=== PATIENT | female | born 1975 | race Caucasian/White ===

== ENCOUNTER 2017-02-21 12:16 | Emergency (ER) | payer OTHER ==
[~2017-02-21] VITALS: Ht 152.4 cm; Wt 72.6 kg
[2017-02-21 13:00] VITALS: BP 130/82
[2017-02-21] MEDS ORDERED: IBUPROFEN 800 MG TAB PO ONE (14:15)
== END 2017-02-21 15:08 | disposition home or self-care (01) ==
LOC: ER 12:16
DX: S09.90XA Unspecified injury of head, initial encounter (principal); R11.0 Nausea; H92.02 Otalgia, left ear; W22.8XXA Striking against or struck by other objects, initial encounter; Y93.01 Activity, walking, marching and hiking; Y99.8 Other external cause status; Y92.218 Other school as the place of occurrence of the external cause
CPT/HCPCS: 70450

== ENCOUNTER 2024-11-13 06:25 | Emergency (ER) | payer BC, OTHER ==
[~2024-11-13] VITALS: Ht 152.4 cm; Wt 78.0 kg
--- NOTE | 2024-11-13 07:11 | ED.PDOC ---
GI ASSESSMENT HPI Comments 49 year old female presents to the ED with chief complaint of abdominal pain. Patient reports that she has been experiencing intermittent epigastric abdominal pain for the past 2 days, but she was woken up from sleeping at 2am due to sharp pain with associated nausea. Patient relays she has history of IBS and GERD. Patient denies any vomiting, diarrhea, dysuria, constipation, fever, or chills. Chief Complaint: Abdominal Pain Time Seen by MD: 07:10 Primary Care Provider: ANH Sky Notes: Nurses Notes, Medications, Allergies Allergies: Coded Allergies: NO KNOWN ALLERGIES (Unverified , 11/13/24) Home Meds Active Scripts Pantoprazole Sodium Sesquihydr (Protonix) 40 Mg Tab, 40 MG PO DAILY for 5 Days, #5 TAB Prov:GIOVANNI GIBBONS MD 11/13/24 Cephalexin (KEFLEX CAPSULE) 250 Mg Cp, 250 MG PO QID for 5 Days, #20 BOTTLE Prov:GIOVANNI GIBBONS MD 11/13/24 Information Source: Patient Mode of Arrival: Ambulatory Timing: Days Duration: Intermittent Prehospital treatment: None Quality: Sharp Vomitus: None Stool: Normal Severity: Moderate Recent: None Recent Hx of: None Pain Location: Epigastric Modifying Factors: Nothing Associated sign and symptoms: Nausea, Abdominal Pain Past Medical History PAST MEDICAL HISTORY: GERD Past Medical History (Other): IBS Surgical History (Other): Partial hysterectomy HUC OB History: No Pertinent HUC OB History Family History Family History: Reviewed,noncontributory to illness, Unknown Social History Smoker: Non-Smoker Alcohol: Denies ETOH Use Drugs: Denies Drug Use Lives In: Home Constitutional: denies: chills, diaphoresis, fatigue, fever, malaise, sweats, weakness, others EENTM: denies: blurred vision, double vision, ear bleeding, ear discharge, ear drainage, ear pain, ear ringing, eye pain, eye redness, hearing loss, mouth pain, mouth swelling, nasal discharge, nose bleeding, nose congestion, nose pain, photophobia, tearing, throat pain, throat swelling, voice changes, others Respiratory: denies: cough, hemoptysis, orthopnea, SOB at rest, shortness of breath, SOB with excertion, stridor, wheezing, others Cardiovascular: denies: chest pain, dizzy spells, diaphoresis, Dyspnea on exertion, edema, irregular heart beat, left arm pain, lightheadedness, palpitations, PND, syncope, others Gastrointestinal: reports: abdominal pain, nausea; denies: abdomen distended, blood streaked bowels, constipated, diarrhea, dysphagia, difficulty swallowing, hematemesis, melena, poor appetite, poor fluid intake, rectal bleeding, rectal pain, vomiting, others Genitourinary: denies: abnormal vagina bleeding, burning, dyspareunia, dysuria, flank pain, frequency, hematuria, incontinence, pain, , vagina discha rge, urgency, others Neurological: denies: dizziness, fainting, headache, left sided numbness, left sided weakness, numbness, paresthesia, pre-existing deficit, right sided numbness, right sided weakness, seizure, speech problems, tingling, tremors, weakness, others Musculoskeletal: denies: back pain, gout, joint pain, joint swelling, muscle pain, muscle stiffness, neck pain, others Integumetry: denies: bruises, change in color, change in hair/nails, dryness, laceration, lesions, lumps, rash, wounds, others Allergic/Immunocompromised: denies: Difficulty Healing, Frequent Infections, Hives, Itching, others Hematologic/Lymphatic: denies: anemia, blood clots, easy bleeding, easy bruising, swollen glands, others Endocrine: denies: excessive hunger, excessive sweating, excessive thirst, excessive urination, flushing, intolerance to cold, intolerance to heat, unexplained weight gain, unexplained weight loss, others Psychiatric: denies: anxiety, bipolar disorder, depression, hopeless, panic disorder, schizophrenia, sleepless, suicidal, others All Other Systems: Reviewed and Negative Physical Exam General Appearance: Moderate Distress, Normal HEENT: Normal ENT Inspection, PERRL/EOMI Neck: Full Range of Motion, Non-Tender, Normal, Normal Inspection Respiratory: Chest Non-Tender, Lungs Clear, No Accessory Muscle Use, No Respiratory Distress, Normal Breath Sounds Cardiovascular: No Edema, No JVD, No Murmur, No Gallop, Normal Peripheral Pulses, Regular Rate/Rhythm Breast Exam: Deferred Gastrointestinal: No Organomegaly, Non Tender, No Pulsatile Mass, Normal Bowel Sounds, Soft Genitalia: Deferred Pelvic: Deferred Rectal: Deferred Extremities: No calf tenderness, Normal capillary refill, Normal inspection, Normal range of motion, Non-tender, No pedal edema Musculoskeletal : Apperance: Normal Neurologic: Alert, head kiln operator II-XII nml as Tested, No Motor Deficits, Normal Affect, Normal Mood, No Sensory Deficits Cerebellar Function: Normal Reflexes: Normal Skin: Dry, Normal Color, Warm Peripheral Pulses: 3+ Radial (R), 3+ Radial (L) Lymphatic: No Adenopathy Was a procedure done? Was a procedure done?: No GI differential Dx Differential Diagnosis: Constipation, Diverticular disease, Esophagitis, Gastritis/PUD, Gastroenteritis X-Ray, Labs, Meds, VS Vital Signs Date Time Temp Pulse Resp B/P (MAP) Pulse Ox O2 Delivery O2 Flow Rate FiO2 11/13/24 10:42 98.1 75 16 127/76 (93) 97 98.1 11/13/24 07:57 84 16 97 Room Air 11/13/24 07:57 97.8 84 16 139/76 (97) 97 97.8 11/13/24 06:45 98.3 88 16 153/90 (111) 99 Lab Test 11/13/24 07:21 11/13/24 06:45 Range/Units White Blood Count 7.6 4.4-10.8 10^3/uL Red Blood Count 5.46 H 4.0-5.20 10^6/uL Hemoglobin 14.1 12.2-16.2 g/dL Hematocrit 43.8 36.0-46.0 % Mean Corpuscular Volume 80.1 80.0-100.0 fL Mean Corpuscular Hemoglobin 25.8 L 28.0-32.0 pg Mean Corpuscular Hemoglobin Concent 32.3 32.0-36.0 g/dL Red Cell Distribution Width 15.1 H 11.8-14.3 % Platelet Count 309 140-450 10^3/uL Mean Platelet Volume 8.1 6.9-10.8 fL Neutrophils (%) (Auto) 56.8 37.0-80.0 % Lymphocytes (%) (Auto) 34.0 10.0-50.0 % Monocytes (%) (Auto) 5.7 0.0-12.0 % Eosinophils (%) (Auto) 2.3 0.0-7.0 % Basophils (%) (Auto) 1.2 0.0-2.0 % Neutrophils # (Auto) 4.3 1.6-8.6 10 ^3/uL Lymphocytes # (Auto) 2.6 0.4-5.4 10 ^3/uL Monocytes # (Auto) 0.4 0-1.3 10 ^3/uL Eosinophils # (Auto) 0.2 0-0.8 10 ^3/uL Basophils # (Auto) 0.1 0-0.2 10 ^3/uL Nucleated Red Blood Cells 0.0 % Sodium Level 143 136-145 mmol/L Potassium Level 4.2 3.5-5.1 mmol/L Chloride Level 108 H 98-107 mmol/L Carbon Dioxide Level 28 20-31 mmol/L Anion Gap 7 5-15 Blood Urea Nitrogen 8 L 9-23 mg/dL Creatinine 0.80 0.550-1.02 mg/dL Glomerular Filtration Rate Calc 90 >90 mL/min BUN/Creatinine Ratio 10.0 10.0-20.0 Serum Glucose 100 74-106 mg/dL Calcium Level 9.8 8.7-10.4 mg/dL Lipase 46 12-53 U/L Urine Color Light-yellow Yellow Urine Clarity Clear Clear Urine pH 7.0 5.0-9.0 Urine Specific [place] 1.019 1.001-1.035 Urine Protein Negative Negative Urine Ketones Negative Negative Urine Blood 1+ H Negative /uL Urine Nitrite Negative Negative Urine Bilirubin Negative Negative Urine Urobilinogen Normal Negative mg/dL Urine Leukocyte Esterase Trace Negative /uL Urine RBC 6 0 - 4 /hpf Urine WBC 1 0 - 5 /hpf Urine Squamous Epithelial Cells Few <5 /hpf Urine Bacteria None seen None Seen /hpf Urine Glucose Normal Normal mg/dL Patient alert. Complaining of abdominal pain. Vitals stable. Answering all questions. Abdomen is soft nontender. Reviewed her history. Continue cardiac monitoring. CT scan of the abdomen reviewed does show nonobstructing kidney stone. No acute process. Urinalysis shows UTI. Was given prescription of Keflex antibiotic. Explained to the patient. Was told to follow up with her primary care physician. Was told to come back if there is any problem. CT Abd/Pel: FINDINGS: LUNG BASE: Normal. LIVER: Normal. GALLBLADDER AND BILIARY TREE: Cholecystectomy clips. No intra- or extrahepatic biliary ductal dilation. PANCREAS: Normal. SPLEEN: Normal. BOWEL: Normal. Normal appendix. ADRENALS: Normal. KIDNEYS AND URETER: Nonobstructive right kidney stone, no hydronephrosis. BLADDER: Normal. REPRODUCTIVE ORGANS: Normal. LYMPH NODES:No lymphadenopathy. PERITONEUM: No ascites or free air. No other fluid collection. VESSELS: Scattered atherosclerotic calcifications are noted. RETROPERITONEUM: Normal. ABDOMINAL WALL: Small fat containing umbilical hernia. BONES: Scattered osseous degenerative changes are noted. IMPRESSION: No acute intraabdominal abnormality. Nonobstructive right kidney stone, no hydronephrosis. Images Reviewed?: Images reviewed and evaluated by me Time of 1ST Reevaluation: 08:10 Reevaluation 1ST: Improved Patient Education/Counseling: Diagnosis, Treatment Family Education/Counseling: No Family Present Additional Information The following tests were ordered, and results were reviewed by me: BMP, UA, CBC, Lipase I discussed treatment and results with medical personnel. Departure 1 Departure Time of Disposition: 07:35 Impression: Primary Impression: Gastritis Qualified Codes: K29.00 - Acute gastritis without bleeding Additional Impressions: Urinary tract infection Qualified Codes: N30.00 - Acute cystitis without hematuria Kidney stone Disposition: HOME / SELF CARE / HOMELESS Condition: Good e-Prescriptions Pantoprazole Sodium Sesquihydr (Protonix) 40 Mg Tab 40 MG PO DAILY for 5 Days, #5 TAB Prov: GIOVANNI GIBBONS MD 11/13/24 Cephalexin (KEFLEX CAPSULE) 250 Mg Cp 250 MG PO QID for 5 Days, #20 BOTTLE Prov: GIOVANNI GIBBONS MD 11/13/24 Discharged With: Self Critical Care Note Critical Care Time?: No Stability Stability form required: No Heart Score Heart Score: Heart Score Response (Comments) Value History N/A 0 EKG N/A 0 Age N/A 0 Risk Factors N/A 0 Troponin N/A 0 Total 0 I personally scribed for GIOVANNI GIBBONS MD ([email or web address]) on 11/13/24 at 07:11. Electronically submitted by Woo Maddox ([email or web address]). I personally scribed for GIOVANNI GIBBONS MD ([email or web address]) on 11/13/24 at 07:19. Electronically submitted by Woo Maddox ([email or web address]). I personally scribed for GIOVANNI GIBBONS MD ([email or web address]) on 11/13/24 at 10:38. Electronically submitted by Jeanine Sinha ([email or web address]). I personally scribed for GIOVANNI GIBBONS MD ([email or web address]) on 11/13/24 at 10:58. Electronically submitted by Woo Maddox ([email or web address]). GIOVANNI GIBBONS MD Nov 13, 2024 07:11
[2024-11-13 07:38] LABS: Basophils # (auto) 0.1 10 ^3/uL (0-0.2); Basophils % (auto) 1.2 % (0.0-2.0); Eosinophils # (auto) 0.2 10 ^3/uL (0-0.8); Eosinophils % (auto) 2.3 % (0.0-7.0); Hematocrit 43.8 % (36.0-46.0); Hemoglobin 14.1 g/dL (12.2-16.2); Lymphocytes # (auto) 2.6 10 ^3/uL (0.4-5.4); Mean Corpuscular Hemoglobin 25.8 pg (28.0-32.0); Mean Corpuscular Hgb Conc. 32.3 g/dL (32.0-36.0); Mean Corpuscular Volume 80.1 fL (80.0-100.0); Monocytes # (auto) 0.4 10 ^3/uL (0-1.3); Monocytes % (auto) 5.7 % (0.0-12.0); Neutrophils # (auto) 4.3 10 ^3/uL (1.6-8.6); Neutrophils % (auto) 56.8 % (37.0-80.0); Platelet Count (auto) 309 10^3/uL (140-450); Red Blood Cells 5.46 10^6/uL (4.0-5.20); Red Cell Distribution Width 15.1 % (11.8-14.3); White Blood Cell 7.6 10^3/uL (4.4-10.8)
[2024-11-13 07:45] LABS: Potassium 4.2 mmol/L (3.5-5.1); Sodium 143 mmol/L (136-145)
[2024-11-13 07:46] LABS: Anion Gap 7 (5-15); Carbon Dioxide 28 mmol/L (20-31)
[2024-11-13 07:47] LABS: Calcium 9.8 mg/dL (8.7-10.4)
[2024-11-13 07:51] LABS: Glucose 100 mg/dL (74-106)
[2024-11-13 07:52] LABS: Lipase 46 U/L (12-53)
[2024-11-13 08:05] LABS: Blood Urea Nitrogen 8 mg/dL (9-23); Chloride 108 mmol/L (98-107)
[2024-11-13 08:17] LABS: Urine Bacteria None Seen /hpf (None Seen)
[2024-11-13 08:39] LABS: Urine Blood 1+ /uL (Negative); Urine Clarity Clear (Clear); Urine Color Light-Yellow (Yellow); Urine Protein, UAD Negative (Negative); Urine Specific Gravity 1.019 (1.001-1.035); Urine Urobilinogen Normal (Negative); Urine WBC 1 /hpf (0 - 5)
[2024-11-13] MEDS ORDERED: PANT40TA2 PO (09:52)
[2024-11-13] MEDS ORDERED: CEPH250C PO (09:52)
--- NOTE | 2024-11-13 10:46 | DVH ---
CT CT AB PEL WO CON-NO ORAL OR IV INDICATION: stone EXAM DATE: 11/13/2024 10:00 AM COMPARISON: None RADIATION DOSE: CTDIvol: 13.38 mGy, DLP: 652.52 mGy*cm PROCEDURE: Helical CT images were obtained of the abdomen and pelvis without IV contrast Sagittal an d coronal reconstructions are provided. ORAL CONTRAST: None. ADDITIONAL IMAGES / REFORMATS: None All CT scans at this medical facility are performed using dose modulation techniques as appropriate t o a performed exam including the following: Automated exposure control was utilized; adjustment of th e MA and/or KV according to patient size; and use of iterative reconstruction technique. FINDINGS: LUNG BASE: Normal. LIVER: Normal. GALLBLADDER AND BILIARY TREE: Cholecystectomy clips. No intra- or extrahepatic biliary ductal dilatio n. PANCREAS: Normal. SPLEEN: Normal. BOWEL: Normal. Normal appendix. ADRENALS: Normal. KIDNEYS AND URETER: Nonobstructive right kidney stone, no hydronephrosis. BLADDER: Normal. REPRODUCTIVE ORGANS: Normal. LYMPH NODES:No lymphadenopathy. PERITONEUM: No ascites or free air. No other fluid collection. VESSELS: Scattered atherosclerotic calcifications are noted. RETROPERITONEUM: Normal. ABDOMINAL WALL: Small fat containing umbilical hernia. BONES: Scattered osseous degenerative changes are noted. IMPRESSION: No acute intraabdominal abnormality. Nonobstructive right kidney stone, no hydronephrosis.
[2024-11-13 11:39] VITALS: BP 128/78; PULSE 78; RESP 16; TEMP 98.2; O2SAT 98
== END 2024-11-13 11:41 | disposition home or self-care (01) ==
LOC: ER 06:25
DX: K29.70 Gastritis, unspecified, without bleeding (principal); N30.00 Acute cystitis without hematuria; N20.0 Calculus of kidney; K21.9 Gastro-esophageal reflux disease without esophagitis; Z98.890 Other specified postprocedural states
CPT/HCPCS: 36415; 74176; 80048; 81001; 83690; 85025

== ENCOUNTER 2025-01-12 15:24 | Inpatient (IN) | payer BC, OTHER ==
[~2025-01-12] VITALS: Ht 154.9 cm; Wt 76.9 kg
[~2025-01-12 15:24] MED LIST: CEPH250C PO; PANT40TA2 PO
--- NOTE | 2025-01-12 15:52 | DVH ---
CHEST RADIOGRAPH Indication: chest pain Technique: Single frontal view of the chest was obtained COMPARISON: None FINDINGS: Lines and Tubes: None Lungs: Clear Pleura: No effusion. No pneumothorax. Cardiomediastinal contours: Unremarkable Bones: Unremarkable IMPRESSION: No acute disease.
[2025-01-12 15:55] LABS: Basophils # (auto) 0.1 10 ^3/uL (0-0.2); Hemoglobin 14.1 g/dL (12.2-16.2); Lymphocytes # (auto) 2.2 10 ^3/uL (0.4-5.4); Monocytes # (auto) 0.6 10 ^3/uL (0-1.3); Red Blood Cells 5.49 10^6/uL (4.0-5.20); Red Cell Distribution Width 15.6 % (11.8-14.3)
[2025-01-12 15:57] LABS: Basophils % (auto) 0.9 % (0.0-2.0); Eosinophils # (auto) 0.1 10 ^3/uL (0-0.8); Eosinophils % (auto) 1.7 % (0.0-7.0); Hematocrit 43.7 % (36.0-46.0); Lymphocytes % (auto) 27.6 % (10.0-50.0); Mean Corpuscular Hemoglobin 25.7 pg (28.0-32.0); Mean Corpuscular Hgb Conc. 32.3 g/dL (32.0-36.0); Mean Corpuscular Volume 79.6 fL (80.0-100.0); Monocytes % (auto) 7.5 % (0.0-12.0); Neutrophils % (auto) 62.3 % (37.0-80.0); Platelet Count (auto) 334 10^3/uL (140-450); White Blood Cell 8.1 10^3/uL (4.4-10.8)
[2025-01-12 16:07] LABS: Calcium 9.7 mg/dL (8.7-10.4); Carbon Dioxide 26 mmol/L (20-31)
[2025-01-12 16:12] LABS: BUN/Creatinine Ratio 9.3 (10.0-20.0)
--- NOTE | 2025-01-12 16:13 | ED.PDOC ---
HPI Comments 49y F who presents to the ED for chief complaint of chest pain. Pt states she has been having chest pain for the past 5 days. Pt states the pain is located by the L side of her chest, intermittent, radiaing to the L arm, sharp in nature, rating the pain 9/10, with noted exacerbation of pain while ambulating and no relieving factors. Pt has associated shortness of breath, but otherwise denies any other symptoms. Pt has noted BP of 158/89 and heart rate of 102 with all other vitals in normal range. Pt otherwise denies any other symptoms at this time. Chief Complaint: Chest Pain Time Seen by MD: 16:11 Primary Care Provider: ANH Reviewed Notes: Nurses Notes, Medications, Allergies (No allergies to medications) Allergies: Coded Allergies: NO KNOWN ALLERGIES (Unverified , 11/13/24) Home Meds Active Scripts Pantoprazole Sodium Sesquihydr (Protonix) 40 Mg Tab, 40 MG PO DAILY for 5 Days, #5 TAB Prov:GIOVANNI GIBBONS MD 11/13/24 Cephalexin (KEFLEX CAPSULE) 250 Mg Cp, 250 MG PO QID for 5 Days, #20 BOTTLE Prov:GIOVANNI GIBBONS MD 11/13/24 Information Source: Patient Mode of Arrival: Ambulatory Brought in by: self Severity: Moderate Timing: Days Duration: Since onset Prehospital treatment: None Location: Chest (L) Radiation: Shoulder (L) Quality: Pressure Onset: At Rest, With Light Exertion Cardiac Risk Factors: Hyperlipidemia PE Risk Factors: None History of: Similar pain in past Modifying Factors: Exertion Associated Signs and Symptoms: SOB Past Medical History PAST MEDICAL HISTORY: GERD, High Lipids Surgical History: Cholecystectomy, Hysterectomy QUALITY ASSURANCE ANALYST History: No Pertinent QUALITY ASSURANCE ANALYST History Family History Family History: Reviewed,noncontributory to illness, Unknown Social History Smoker: Non-Smoker Alcohol: Denies ETOH Use Drugs: Denies Drug Use Lives In: Home Constitutional: denies: chills, diaphoresis, fatigue, fever, malaise, sweats, weakness, others EENTM: denies: blurred vision, double vision, ear bleeding, ear discharge, ear drainage, ear pain, ear ringing, eye pain, eye redness, hearing loss, mouth pain, mouth swelling, nasal discharge, nose bleeding, nose congestion, nose pain, photophobia, tearing, throat pain, throat swelling, voice changes, others Respiratory: reports: shortness of breath; denies: cough, hemoptysis, orthopnea, SOB at rest, SOB with excertion, stridor, wheezing, others Cardiovascular: reports: chest pain; denies: dizzy spells, diaphoresis, Dyspnea on exertion, edema, irregular heart beat, left arm pain, lightheadedness, palpitations, PND, syncope, others Gastrointestinal: denies: abdomen distended, abdominal pain, blood streaked bowels, constipated, diarrhea, dysphagia, difficulty swallowing, hematemesis, melena, nausea, poor appetite, poor fluid intake, rectal bleeding, rectal pain, vomiting, others Genitourinary: denies: abnormal vagina bleeding, burning, dyspareunia, dysuria, flank pain, frequency, hematuria, incontinence, pain, , vagina disc harge, urgency, others Neurological: denies: dizziness, fainting, headache, left sided numbness, left sided weakness, numbness, paresthesia, pre-existing deficit, right sided numbness, right sided weakness, seizure, speech problems, tingling, tremors, weakness, others Musculoskeletal: denies: back pain, gout, joint pain, joint swelling, muscle pain, muscle stiffness, neck pain, others Integumetry: denies: bruises, change in color, change in hair/nails, dryness, laceration, lesions, lumps, rash, wounds, others Allergic/Immunocompromised: denies: Difficulty Healing, Frequent Infections, Hives, Itching, others Hematologic/Lymphatic: denies: anemia, blood clots, easy bleeding, easy bruising, swollen glands, others Endocrine: denies: excessive hunger, excessive sweating, excessive thirst, excessive urination, flushing, intolerance to cold, intolerance to heat, unexplained weight gain, unexplained weight loss, others Psychiatric: denies: anxiety, bipolar disorder, depression, hopeless, panic disorder, schizophrenia, sleepless, suicidal, others All Other Systems: Reviewed and Negative Physical Exam General Appearance: Moderate Distress HEENT: Normal ENT Inspection, Pharynx Normal, TMs Normal Neck: Full Range of Motion, Non-Tender, Normal, Normal Inspection Respiratory: Chest Non-Tender, Lungs Clear, No Accessory Muscle Use, No Respiratory Distress, Normal Breath Sounds Cardiovascular: No Edema, No JVD, No Murmur, No Gallop, Normal Peripheral Pulses, Regular Rate/Rhythm Breast Exam: Deferred Gastrointestinal: No Organomegaly, Non Tender, No Pulsatile Mass, Normal Bowel Sounds, Soft Genitalia: Deferred Pelvic: Deferred Rectal: Deferred Extremities: No calf tenderness, Normal capillary refill, Normal inspection, Normal range of motion, Non-tender, No pedal edema Musculoskeletal : Apperance: Normal Neurologic: Alert, digital media buyer II-XII nml as Tested, No Motor Deficits, Normal Affect, Normal Mood, No Sensory Deficits Cerebellar Function: Normal Reflexes: Normal Skin: Dry, Normal Color, Warm Lymphatic: No Adenopathy EKG EKG : Pulse Rate (adult): 97 [place]: LAD Cardiac Rhythm: NSR Block: None Hypertrophy: None ST: Normal Was a procedure done? Was a procedure done?: No CP Differential Dx Differential Diagnosis: Angina, Anxiety / Panic Attack, PVC's, Sinus Tachycardia Differential Diagnosis: HTN Essential, HTN Accelerated Differential Diagnosis: Chest Wall Pain X-Ray, Labs, Meds, VS Vital Signs Date Time Temp Pulse Resp B/P (MAP) Pulse Ox O2 Delivery O2 Flow Rate FiO2 01/12/25 16:16 82 01/12/25 16:13 97 01/12/25 15:39 98.9 101 16 158/89 (112) 98 01/12/25 15:30 97 Lab Test 01/12/25 16:25 01/12/25 16:00 01/12/25 15:30 Range/Units Troponin I High Sensitivity < 3 L < 3 L </=34 ng/L Urine Color Colorless Yellow Urine Clarity Clear Clear Urine pH 6.0 5.0-9.0 Urine Specific [place] 1.006 1.001-1.035 Urine Protein Negative Negative Urine Ketones Negative Negative Urine Blood Trace H Negative /uL Urine Nitrite Negative Negative Urine Bilirubin Negative Negative Urine Urobilinogen Normal Negative mg/dL Urine Leukocyte Esterase Negative Negative /uL Urine RBC 4 0 - 4 /hpf Urine Microscopic WBC < 1 0-5 /HPF Urine Squamous Epithelial Cells Few <5 /hpf Urine Bacteria Few H None Seen /hpf Urine Glucose Normal Normal mg/dL White Blood Count 8.1 4.4-10.8 10^3/uL Red Blood Count 5.49 H 4.0-5.20 10^6/uL Hemoglobin 14.1 12.2-16.2 g/dL Hematocrit 43.7 36.0-46.0 % Mean Corpuscular Volume 79.6 L 80.0-100.0 fL Mean Corpuscular Hemoglobin 25.7 L 28.0-32.0 pg Mean Corpuscular Hemoglobin Concent 32.3 32.0-36.0 g/dL Red Cell Distribution Width 15.6 H 11.8-14.3 % Platelet Count 334 140-450 10^3/uL Mean Platelet Volume 8.2 6.9-10.8 fL Neutrophils (%) (Auto) 62.3 37.0-80.0 % Lymphocytes (%) (Auto) 27.6 10.0-50.0 % Monocytes (%) (Auto) 7.5 0.0-12.0 % Eosinophils (%) (Auto) 1.7 0.0-7.0 % Basophils (%) (Auto) 0.9 0.0-2.0 % Neutrophils # (Auto) 5.0 1.6-8.6 10 ^3/uL Lymphocytes # (Auto) 2.2 0.4-5.4 10 ^3/uL Monocytes # (Auto) 0.6 0-1.3 10 ^3/uL Eosinophils # (Auto) 0.1 0-0.8 10 ^3/uL Basophils # (Auto) 0.1 0-0.2 10 ^3/uL Nucleated Red Blood Cells 0.0 % D-Dimer, Quantitative 0.29 0.0-0.49 mg/L FEU Sodium Level 140 136-145 mmol/L Potassium Level 4.3 3.5-5.1 mmol/L Chloride Level 106 98-107 mmol/L Carbon Dioxide Level 26 20-31 mmol/L Anion Gap 8 5-15 Blood Urea Nitrogen 8 L 9-23 mg/dL Creatinine 0.86 0.550-1.02 mg/dL Glomerular Filtration Rate Calc 82 >90 mL/min BUN/Creatinine Ratio 9.3 L 10.0-20.0 Serum Glucose 106 74-106 mg/dL Calcium Level 9.7 8.7-10.4 mg/dL Current Medications Medications (Trade) Dose Ordered Sig/Anayeli Route Start Time Stop Time Status Last Admin Aspirin 162 mg ONCE ONCE PO 01/12/25 16:30 01/12/25 16:31 DC 01/12/25 16:46 CHEST RADIOGRAPH IMPRESSION: No acute disease. The patient's CBC is within normal limits The chemistry is within normal limits The 1st troponin level came back as negative The patient was still having persistent chest pain The patient was being admitted to the hospitalist The patient was given aspirin here in the emergency department's We discussed the findings with the patient and the patient will need to have a Cardiology consult. The 2nd troponin level came back negative The D-dimer is within normal limits at this time The patient is being admitted Images Reviewed?: Images reviewed and evaluated by me Time of 1ST Reevaluation: 16:40 Reevaluation 1ST: Unchanged Patient Education/Counseling: Diagnosis, Treatment Family Education/Counseling: No Family Present Additional Information - I reviewed the following notes from patient's past medical encounters: - The following tests were ordered, and results were reviewed by me: (Labs, X- Ray, EKG): cbc, chest x-ray, ua, trop x3, ekgx3, d-dimer, bmp, - Additional information was gathered from interviewing the following independent Historian: (Family, Other Providers, EMT): self - I reviewed and agreed with the following test results read by other provider: (X-ray, CT, US): radiologist - I discussed treatments and results with medical personnel and: (consultants, family): none Departure 1 Departure Time of Disposition: 17:30 Impression: Primary Impression: Acute coronary syndrome Disposition: 09 ADMITTED INPATIENT Admit to: Tele Condition: Fair Critical Care Note Critical Care Time?: Yes (45 min-critical care time only) Stability Stability form required: Yes Unstable for transfer: Telemetry monitoring (Telemetry monitoring required), ED Physician Assesment (Clinical assesment) Heart Score Heart Score: Heart Score Response (Comments) Value History Slightly Suspicious 0 EKG Normal 0 Age 45-64 1 Risk Factors 1 or 2 risk factors 1 Troponin Normal limit 0 Total 2 I personally scribed for ELISHA LANTIGUA MD ([email or web address]) on 01/12/25 at 16:13. Electronically submitted by Chai Del Angel ([email or web address]). I personally scribed for ELISHA LANTIGUA MD ([email or web address]) on 01/12/25 at 16:14. Electronically submitted by Chai Del Angel ([email or web address]). ELISHA LANTIGUA MD Jan 12, 2025 16:13
[2025-01-12 16:14] LABS: Anion Gap 8 (5-15); Chloride 106 mmol/L (98-107); Potassium 4.3 mmol/L (3.5-5.1); Sodium 140 mmol/L (136-145)
[2025-01-12 16:15] LABS: Blood Urea Nitrogen 8 mg/dL (9-23); Glucose 106 mg/dL (74-106)
[2025-01-12] MEDS: ASPirin 81 mg TAB PO ONE (16:46)
[2025-01-12 16:58] LABS: Urine Bacteria FEW /hpf (None Seen); Urine Blood TRACE /uL (Negative); Urine Clarity Clear (Clear); Urine Color Colorless (Yellow); Urine Protein, UAD Negative (Negative); Urine Specific Gravity 1.006 (1.001-1.035); Urine Squamous Epithelial Cell FEW /hpf (<5); Urine Urobilinogen Normal (Negative); Urine WBC < 1 /HPF (0-5)
--- NOTE | 2025-01-12 19:08 | ECG ---
[facility] Test Date: 2025-01-12 Test Time: 16:15:40 Pat Name: JULIÁN STOCK Department: ED Room: 0286 Gender: F General Practitioner: JACQUELNIE : 1975 Requested By: ELISHA LANTIGUA Order Number: [id number] Reading MD: Renny Perez Measurements Intervals [place] Rate: 82 P: 50 ID: [id number] QRS: -35 QRSD: 92 T: 19 QT: 361 QTc: 422 Interpretive Statements Sinus rhythm Left axis deviation Low voltage, precordial leads Borderline T abnormalities, anterior leads Electronically Signed On 01-13-2025 22:19:54 PST by Renny Perez Please click the below link to view image of tracing.
[2025-01-12 21:29] VITALS: PULSE 88; RESP 18; O2SAT 98
[2025-01-12] MEDS: PANTOPRAZOLE 40 MG TAB PO SCH (21:36)
[2025-01-12] MEDS: KETOROLAC TROMETH 30 MG/ML 1ML VIAL IV SCH (21:36)
[2025-01-12] MEDS: LOSARTAN POTASSIUM 50 MG TAB PO SCH (21:36)
[2025-01-13] VITALS (10 sets, daily range): BP systolic 113–143; BP diastolic 69–82; PULSE 66–143; RESP 16–82; TEMP 97.6–98.4; O2SAT 95–98
[2025-01-13] MEDS: ACETAMINOPHEN 325 MG TAB PO SCH (00:10)
[2025-01-13] MEDS ORDERED: ATOR10TA52 PO (02:08)
[2025-01-13 02:34] LABS: Urine Bacteria None Seen /hpf (None Seen)
[2025-01-13 03:14] LABS: Amphetamine Screen, Urine Neg (NEGATIVE); Barbiturate Scree,Urine Neg (NEGATIVE); Benzodiazephine Screen, Urine Neg (NEGATIVE); Cocaine Screen, Urine Neg (NEGATIVE); Opiate Scree,Urine Neg (NEGATIVE); Phencyclidine Screen, Urine Neg (NEGATIVE)
[2025-01-13 03:16] LABS: Cannabinoid Screen, Urine Neg (NEGATIVE)
--- NOTE | 2025-01-13 03:16 | DVHHPRES ---
History of Present Illness Resident Creating Document: GIOVANI GOSS Reason for Visit: chest pain History of Present Illness The patient is a 49-year-old female with PMHx of HLD and GERD presenting with 4 days of left-sided chest pain. She describes the pain as intermittent, sharp in nature, sometimes radiating to the left arm, She notes tenderness on palpation around the chest wall, and the pain also increases with arm movement. The patient states the discomfort worsens when she takes a deep breath, suggesting a pleuritic component. She denies classical angina symptoms (e.g., no chest pressure or pain on exertion), and she reports no aggravation of pain when walking. She endorses mild shortness of breath, which she attributes to the pain itself. She denies chills, diaphoresis, or other systemic symptoms. In the ED, her initial blood pressure was 158/89 mmHg with a heart rate of 102 bpm; other vital signs were within normal limits. Laboratory workup, including CBC, chemistry panel, and multiple troponin measurements, was normal. A D-dimer test was also within normal limits. The EKG showed normal sinus rhythm no evidence of blocks or hypertrophy, and normal ST segments. A chest radiograph revealed no acute disease. Home meds: Atorvastatin pantoprazole Review of Systems Constitutional: No: Fever, Chills, Sweats, Weakness, Malaise, Other Eyes: No: Pain, Vision change, Conjunctivae inflammation, Eyelid inflammation, Other, Redness ENT: No: Ear pain, Ear discharge, Nose pain, Nose discharge, Nose congestion, Mouth pain, Mouth swelling, Throat pain, Throat swelling, Other Respiratory: No: Cough, Dry, Shortness of breath, SOB with excertion, Wheezing, Hemoptysis, Pleuritic Pain, Sputum, Wheezing, Other Cardiovascular: Chest Pain; No: Palpitations, Orthopnea, Paroxysmal Noc. Dyspnea, Edema, Lt Headedness, Other Gastrointestinal: No: Nausea, Vomiting, Abdominal Pain, Diarrhea, Constipation, Melena, Hematochezia, Other Genitourinary: No Dysuria, No Frequency, No Incontinence, No Hematuria, No Retention, No Other Musculoskeletal: arm pain; No: other, neck pain, shoulder pain, back pain, hand pain, leg pain, foot pain Skin: No: Rash, Lesions, Jaundice, Bruising, Other Neurological: No: Weakness, Numbness, Incoordination, Change in speech, Confusion, Seizures, Other Allergies: Coded Allergies: Penicillins (Verified Allergy, Unknown, 01/12/25) Medications Current Medications Medications Dose Ordered Sig/Anayeli Route Start Time Stop Time Status Last Admin Dose Admin Pantoprazole Sodium 40 mg DAILY PO 01/12/25 21:00 01/12/25 21:36 40 MG Ketorolac Tromethamine 15 mg Q6HPRN IV 01/13/25 00:00 01/18/25 00:00 01/13/25 00:09 15 MG Acetaminophen 325 mg Q6HR PO 01/13/25 00:00 01/13/25 00:10 325 MG Atorvastatin Calcium 40 mg DAILY PO 01/13/25 10:00 Losartan Potassium 50 mg DAILY PO 01/12/25 21:00 01/12/25 21:36 50 MG Exam Vital Signs Vital Signs Date Time Temp Pulse Resp B/P (MAP) Pulse Ox O2 Delivery O2 Flow Rate FiO2 01/13/25 01:58 98.1 143 82 143/82 (102) 96 98.1 01/12/25 21:29 Room Air* 0 21 General Appearance: Alert, Oriented X3, Cooperative HEENT: Atraumatic, PERRLA Respiratory: Clear to auscultation, Normal air movement Cardiovascular: Regular rate, Normal S1, Normal S2 Abdominal: Normal bowel sounds, Soft Extremities: No clubbing, No cyanosis Skin: No rashes, No breakdown Neuro: Normal gait, Normal speech Labs/Xrays Labs Test 01/13/25 02:00 01/12/25 16:25 01/12/25 15:30 Range/Units Troponin I High Sensitivity < 3 L </=34 ng/L White Blood Count 8.1 4.4-10.8 10^3/uL Red Blood Count 5.49 H 4.0-5.20 10^6/uL Hemoglobin 14.1 12.2-16.2 g/dL Hematocrit 43.7 36.0-46.0 % Mean Corpuscular Volume 79.6 L 80.0-100.0 fL Mean Corpuscular Hemoglobin 25.7 L 28.0-32.0 pg Mean Corpuscular Hemoglobin Concent 32.3 32.0-36.0 g/dL Red Cell Distribution Width 15.6 H 11.8-14.3 % Platelet Count 334 140-450 10^3/uL Mean Platelet Volume 8.2 6.9-10.8 fL Neutrophils (%) (Auto) 62.3 37.0-80.0 % Lymphocytes (%) (Auto) 27.6 10.0-50.0 % Monocytes (%) (Auto) 7.5 0.0-12.0 % Eosinophils (%) (Auto) 1.7 0.0-7.0 % Basophils (%) (Auto) 0.9 0.0-2.0 % Neutrophils # (Auto) 5.0 1.6-8.6 10 ^3/uL Lymphocytes # (Auto) 2.2 0.4-5.4 10 ^3/uL Monocytes # (Auto) 0.6 0-1.3 10 ^3/uL Eosinophils # (Auto) 0.1 0-0.8 10 ^3/uL Basophils # (Auto) 0.1 0-0.2 10 ^3/uL Nucleated Red Blood Cells 0.0 % D-Dimer, Quantitative 0.29 0.0-0.49 mg/L FEU Sodium Level 140 136-145 mmol/L Potassium Level 4.3 3.5-5.1 mmol/L Chloride Level 106 98-107 mmol/L Carbon Dioxide Level 26 20-31 mmol/L Anion Gap 8 5-15 Blood Urea Nitrogen 8 L 9-23 mg/dL Creatinine 0.86 0.550-1.02 mg/dL Glomerular Filtration Rate Calc 82 >90 mL/min BUN/Creatinine Ratio 9.3 L 10.0-20.0 Serum Glucose 106 74-106 mg/dL Calcium Level 9.7 8.7-10.4 mg/dL Assessment/Plan Assessment/Plan #Hypertensive crisis #Chest pain #Rule out ACS #Rule out PE #H/o HLD #H/o GERD Admit Med surg Tylenol. Ketorolac Start losartan Aspirin 1 dose given Continue atorvastatin and pantoprazole Discussed with Dr. Drew Time spent on care 23 min Full code Plan discussed with: Patient, Other (rn) My Orders Orders - GIOVANI GOSS RESIDENT Procedure Category Date Status Time Admit ADMIT 01/12/25 Transmitted 20:50 Pantoprazole Tablet PHA 01/12/25 In Process (Protonix Tablet) 21:00 Ketorolac Injection PHA 01/13/25 In Process (Toradol Injection) 00:00 Acetaminophen Tablet PHA 01/13/25 In Process (Tylenol Tablet) 00:00 Atorvastatin (Lipitor) PHA 01/13/25 In Process 10:00 Losartan Tablet PHA 01/12/25 In Process (Cozaar Tablet) 21:00 Complete Blood Count LAB 01/13/25 Logged 04:00 Comprehensive LAB 01/13/25 Logged Metabolic Panel 04:00 Drug Screen LAB 01/13/25 In Process 04:00 Hemoglobin A1c LAB 01/13/25 Logged 04:00 Lipid Panel LAB 01/13/25 Logged 04:00 PTPTT LAB 01/13/25 Logged 04:00 Thyroid Stimulating LAB 01/13/25 Logged Hormone 04:00 Urinalysis LAB 01/13/25 In Process 04:00 Date of Service: Jan 12, 2025 Billing Provider: RODOLFO DREW MD Common Visit Codes: [id number] INP/OBS CARE (HIGH) GIOVANI GOSS RESIDENT Jan 13, 2025 03:16 RODOLFO DREW MD Jan 13, 2025 13:06
[2025-01-13 04:01] LABS: Urine Blood 1+ /uL (Negative); Urine Clarity Clear (Clear); Urine Color Yellow (Yellow); Urine Mucus FEW (None Seen); Urine Protein, UAD TRACE (Negative); Urine Specific Gravity 1.037 (1.001-1.035); Urine Squamous Epithelial Cell FEW /hpf (<5); Urine Urobilinogen Normal (Negative); Urine WBC < 1 /HPF (0-5)
[2025-01-13 04:32] LABS: Basophils # (auto) 0.1 10 ^3/uL (0-0.2); Hematocrit 41.7 % (36.0-46.0); Lymphocytes # (auto) 2.5 10 ^3/uL (0.4-5.4); Monocytes # (auto) 0.6 10 ^3/uL (0-1.3); Neutrophils # (auto) 4.8 10 ^3/uL (1.6-8.6)
[2025-01-13 04:36] LABS: Basophils % (auto) 0.8 % (0.0-2.0); Eosinophils # (auto) 0.3 10 ^3/uL (0-0.8); Eosinophils % (auto) 3.1 % (0.0-7.0); Hemoglobin 13.6 g/dL (12.2-16.2); Lymphocytes % (auto) 30.6 % (10.0-50.0); Mean Corpuscular Hemoglobin 25.9 pg (28.0-32.0); Mean Corpuscular Hgb Conc. 32.6 g/dL (32.0-36.0); Mean Corpuscular Volume 79.4 fL (80.0-100.0); Neutrophils % (auto) 58.5 % (37.0-80.0); Platelet Count (auto) 318 10^3/uL (140-450); Red Blood Cells 5.26 10^6/uL (4.0-5.20); Red Cell Distribution Width 15.5 % (11.8-14.3); White Blood Cell 8.2 10^3/uL (4.4-10.8)
[2025-01-13 04:45] LABS: INR 0.96 (0.9-1.15); Partial Thromboplastin Time 28.5 SEC (24.5-34.5); Prothrombin Time 10.2 sec (9.3-11.8)
[2025-01-13 04:48] LABS: Alanine Aminotransferase 35 U/L (7-40); Albumin 4.7 g/dL (3.2-4.8); Alkaline Phosphatase 75 U/L (46-116); Anion Gap 11 (5-15); Aspartate Aminotransferase 24 U/L (13-40); BUN/Creatinine Ratio 18.2 (10.0-20.0); Blood Urea Nitrogen 12 mg/dL (9-23); Calcium 9.6 mg/dL (8.7-10.4); Carbon Dioxide 23 mmol/L (20-31); Chloride 106 mmol/L (98-107); Glucose 92 mg/dL (74-106); LDL Cholesterol 81 mg/dL (< 100); Potassium 3.8 mmol/L (3.5-5.1); Sodium 140 mmol/L (136-145); Triglycerides 113 mg/dL (< 150)
[2025-01-13 04:49] LABS: Bilirubin, Total 0.7 mg/dL (0.2-1.0); Cholesterol 145 mg/dL (< 200); HDL Cholesterol 55 mg/dL (40-59); Total Protein 7.1 g/dL (5.7-8.2)
[2025-01-13] MEDS: ATORVASTATIN 20 MG TAB PO SCH (09:49)
--- NOTE | 2025-01-13 10:09 | ECG ---
[facility] Test Date: 2025-01-12 Test Time: 15:30:07 Pat Name: JULIÁN STOCK Department: ER Room: 0286 A Gender: F [employer] Supervisor: ARELIS : 1975 Requested By: ELISHA LANTIGUA Order Number: [id number] Reading MD: Renny Perez Measurements Intervals [place] Rate: 97 P: 42 AK: 151 QRS: -25 QRSD: 101 T: -24 QT: 340 QTc: 432 Interpretive Statements Sinus rhythm Borderline left axis deviation Low voltage, precordial leads Borderline T abnormalities, diffuse leads Electronically Signed On 01-13-2025 22:18:29 PST by Renny Perez Please click the below link to view image of tracing.
--- NOTE | 2025-01-13 13:49 | DVHPN2 ---
Subjective Patient continues to report having intermittent chest pain with radiation to her left arm. She does report that for the past five days this sensation has come and gone. She also reports awakening in the middle of the night with chest pressure/palpitations. Reviewed: Care Plan, H&P, Labs, Medications Changes from previous H/P or p: No Changes General: Per HPI Eyes: No Pain, No Vision change, No Conjunctivae inflammation, No Eyelid inflammation, No Other, No Redness ENT: No Ear pain, No Ear discharge, No Nose pain, No Nose discharge, No Nose congestion, No Mouth pain, No Mouth swelling, No Throat pain, No Throat swelling, No Other Cardiovascular: Chest Pain; No Palpitations, No Orthopnea, No Paroxysmal Noc. Dyspnea, No Edema, No Lt Headedness, No Other Respiratory: No Cough, No Dry, No Shortness of breath, No SOB with excertion, No Wheezing, No Hemoptysis, No Pleuritic Pain, No Sputum, No Other Gastrointestinal: No Nausea, No Vomiting, No Abdominal Pain, No Diarrhea, No Constipation, No Melena, No Hematochezia, No Other Genitourinary: No Dysuria, No Frequency, No Incontinence, No Hematuria, No Retention, No Other Musculoskeletal: No other, No neck pain, No shoulder pain; arm pain; No back pain, No hand pain, No leg pain, No foot pain Skin: No Rash, No Lesions, No Jaundice, No Bruising, No Other Objective Vitals Vital Signs Date Time Temp Pulse Resp B/P (MAP) Pulse Ox O2 Delivery O2 Flow Rate FiO2 01/13/25 09:47 121/79 01/13/25 09:00 97.9 71 16 97 97.9 01/13/25 08:15 Room Air* 0 21 Intake/Output Intake and Output 01/13/25 07:00 Intake Total 0 ml Balance 0 ml Intake Oral 0 ml # Voids 1 General Appearance: Alert, Oriented X3, Cooperative, No acute distress HEENT: Atraumatic, PERRLA Cardiovascular: Normal S1, Normal S2 Rectal: Normal inspection Musculoskeletal: Normal sensory function, Normal motor function Neuro: Normal gait, Normal speech Psych/Mental Status: Mood NL Medications Current Medications Medications Dose Ordered Sig/Anayeli Route Start Time Stop Time Status Last Admin Dose Admin Pantoprazole Sodium 40 mg DAILY PO 01/12/25 21:00 01/13/25 09:47 40 MG Ketorolac Tromethamine 15 mg Q6HPRN IV 01/13/25 00:00 01/18/25 00:00 01/13/25 00:09 15 MG Acetaminophen 325 mg Q6HR PO 01/13/25 00:00 01/13/25 06:58 325 MG Atorvastatin Calcium 40 mg DAILY PO 01/13/25 10:00 01/13/25 09:49 40 MG Losartan Potassium 50 mg DAILY PO 01/12/25 21:00 01/13/25 09:47 50 MG Laboratory Results Laboratory Tests 01/13/25 03:52 Chemistry Test 01/12/25 15:30 01/13/25 03:52 Calcium Level 9.7 mg/dL (8.7-10.4) 9.6 mg/dL (8.7-10.4) Albumin 4.7 g/dL (3.2-4.8) Total Protein 7.1 g/dL (5.7-8.2) Coagulation Test 01/12/25 15:30 01/13/25 03:52 D-Dimer, Quantitative 0.29 mg/L FEU (0.0-0.49) Prothrombin Time 10.2 sec (9.3-11.8) Prothrombin Time INR 0.96 (0.9-1.15) Activated Partial Thromboplast Time 28.5 SEC (24.5-34.5) Lipid panel Test 01/13/25 03:52 Cholesterol Level 145 mg/dL (< 200) HDL Cholesterol 55 mg/dL (40-59) Triglycerides Level 113 mg/dL (< 150) LFT Test 01/13/25 03:52 Alanine Aminotransferase (ALT) 35 U/L (7-40) Alkaline Phosphatase 75 U/L (46-116) Aspartate Amino Transferase (AST) 24 U/L (13-40) Total Bilirubin 0.7 mg/dL (0.2-1.0) HgA1c, TSH Test 01/13/25 03:52 Hemoglobin A1c 5.3 % A1C (<5.7) Thyroid Stimulating Hormone (TSH) 2.26 uIU/mL (0.55-4.78) Urinalysis Test 01/13/25 02:00 Urine Color Yellow (Yellow) Urine Clarity Clear (Clear) Urine pH 6.0 (5.0-9.0) Urine Specific [place] 1.037 (1.001-1.035) Urine Protein Trace (Negative) H Urine Ketones Negative (Negative) Urine Blood 1+ /uL (Negative) H Urine Nitrite Negative (Negative) Urine Bilirubin Negative (Negative) Urine Urobilinogen Normal mg/dL (Negative) Urine Leukocyte Esterase Negative /uL (Negative) Urine RBC 12 /hpf (0 - 4) Urine Microscopic WBC < 1 /HPF (0-5) Urine Squamous Epithelial Cells Few /hpf (<5) Urine Calcium Oxalate Crystals Mod (None Seen) Urine Bacteria None seen /hpf (None Seen) Urine Mucus Few (None Seen) Urine Glucose Normal mg/dL (Normal) Labs and/or images reviewed: Labs reviewed by me, Image(s) reviewed by me Assessment/Plan Assessment/Plan Impression: -rule out ACS -questionable GERD -obesity -questionable cardiac dysrhythmia given patient's reports of palpitations Plan: -transferred to telemetry unit -cardiology consultation -defer to cardiology for echocardiogram -continue PPI -further course of care per Cardiology recommendations Total time spent with patient discussing and formulating plan of care: 35 minutes. This medical document was created using an electronic medical record system with [employer] dictation system. Although this document has been carefully reviewed, there may still be some phonetic and typographical errors. These areas are purely typographical due to imperfections of the software programs, and do not reflect any compromise in the patient's medical care. Plan discussed with: Patient, Other (RN) My Orders Orders - CHUY VOGEL NP Procedure Category Date Status Time * Cardiology Consult CONS 01/13/25 Transmitted 13:43 Date of Service: Jan 13, 2025 Billing Provider: CHUY VOGEL NP Common Visit Codes: [id number] INP/OBS CARE(HIGH) CHUY VOGEL NP Jan 13, 2025 13:49
--- NOTE | 2025-01-13 16:38 | DVHINCON2 ---
Date Seen: Jan 13, 2025 Referring Physician ARA Trejo Reason for Consultation Rule out ACS History of Present Illness This is a 49-year-old female patient who presents to the emergency room with chief complaint of chest pain. The patient reports that the chest pain initially began five days ago while eating chili and she thought that it was indigestion. She states that she has been having intermittent pain since then so she decided to come to the emergency room for further evaluation. She describes the chest pain as unprovoked, intermittent, sharp in nature, left- sided without radiation. She denies any associated symptoms. The pain is reproducible upon palpation. Initial twelve lead electrocardiogram reveals normal sinus rhythm with nonspecific ST segment changes to inferior and anterior leads. Troponin levels have been negative. Significant past medical history includes dyslipidemia, GERD, and obesity. Of note, the patient reports that she has a [employer] worker has been recently lifting very heavy objects such as furniture. The patient has received Tylenol and Toradol during this hospitalization with reports of improved chest pain. Past Medical History Past medical history reviewed. No other significant than mentioned above. Past Surgical History Partial hysterectomy Cholecystectomy Family History: FH: ovarian cancer G8 MOTHER FH: pancreatic cancer G8 FATHER Family History Family history reviewed. Social History Denies the use of tobacco, alcohol or illicit drugs. Allergies: Coded Allergies: Penicillins (Verified Allergy, Unknown, 01/12/25) Home Meds Active Scripts Pantoprazole Sodium Sesquihydr (Protonix) 40 Mg Tab, 40 MG PO DAILY for 5 Days, #5 TAB Prov:GIOVANNI GIBBONS MD 11/13/24 Reported Medications Atorvastatin Calcium (ATORVASTATIN CALCIUM) 10 Mg Tab, 1 TAB PO DAILY, #30 TAB 5 Refills 01/13/25 Discontinued Reported Medications Atorvastatin Calcium (ATORVASTATIN CALCIUM) 10 Mg Tab, 1 TAB PO DAILY, #30 TAB 5 Refills 01/13/25 Home Meds Home medications reviewed. Current Medications Current Medications Medications (Trade) Dose Ordered Sig/Anayeli Route PRN Reason Start Time Stop Time Status Last Admin Pantoprazole Sodium (Protonix Tablet) 40 mg DAILY PO 01/12/25 21:00 01/13/25 09:47 Ketorolac Tromethamine (Toradol Injection) 15 mg Q6HPRN IV 01/13/25 00:00 01/18/25 00:00 01/13/25 00:09 Acetaminophen (Tylenol Tablet) 325 mg Q6HR PO 01/13/25 00:00 01/13/25 06:58 Atorvastatin Calcium (Lipitor) 40 mg DAILY PO 01/13/25 10:00 01/13/25 09:49 Losartan Potassium (Cozaar Tablet) 50 mg DAILY PO 01/12/25 21:00 01/13/25 09:47 Review of Systems Constitutional: No symptom reported Ears, Nose, & Throat: No symptom reported Eyes: No symptom reported Neurological: No symptoms reported Pulmonary/Respiratory: No symptoms reported Cardiovascular: Chest pain Gastrointestinal: No symptom reported Genitourinary: No symptom reported Musculoskeletal: No symptom reported Skin: No symptom reported Psychiatric: No symptom reported Endocrine: No symptom reported Hematologic/Lymphatic: No symptom reported Vital Signs Vital Signs Date Time Temp Pulse Resp B/P (MAP) Pulse Ox O2 Delivery O2 Flow Rate FiO2 01/13/25 13:00 97.9 76 20 124/79 (94) 97 97.9 01/13/25 08:15 Room Air* 0 21 Physical Exam General Appearance: Cooperative. Obese Pulmonary/Respiratory: Clear, bilateral breaths sounds. Cardiovascular/Chest: Regular rate and rhythm. Peripheral Pulses: 2+ Radial (R). 2+ Radial (L). 2+ Pedal (R). 2+ Pedal (L) Abdominal Exam: Normal bowel sounds. Ankle Exam: Negative ankle edema Lower extremities: Negative lower extremity edema Neuro/Mental Status: A/OX4, coherent. Thoughts/Psych: Normal thought pattern. Appropriate mood and affect. Good judgment and insight. Appearance: No acute distress. Skin Exam: Normal inspection. Normal color. Warm and dry. Labs/Diagnostic Data Labs Test 01/13/25 03:52 01/13/25 02:00 01/12/25 16:25 01/12/25 15:30 Range/Units White Blood Count 8.2 4.4-10.8 10^3/uL Red Blood Count 5.26 H 4.0-5.20 10^6/uL Hemoglobin 13.6 12.2-16.2 g/dL Hematocrit 41.7 36.0-46.0 % Mean Corpuscular Volume 79.4 L 80.0-100.0 fL Mean Corpuscular Hemoglobin 25.9 L 28.0-32.0 pg Mean Corpuscular Hemoglobin Concent 32.6 32.0-36.0 g/dL Red Cell Distribution Width 15.5 H 11.8-14.3 % Platelet Count 318 140-450 10^3/uL Mean Platelet Volume 8.0 6.9-10.8 fL Neutrophils (%) (Auto) 58.5 37.0-80.0 % Lymphocytes (%) (Auto) 30.6 10.0-50.0 % Monocytes (%) (Auto) 7.0 0.0-12.0 % Eosinophils (%) (Auto) 3.1 0.0-7.0 % Basophils (%) (Auto) 0.8 0.0-2.0 % Neutrophils # (Auto) 4.8 1.6-8.6 10 ^3/uL Lymphocytes # (Auto) 2.5 0.4-5.4 10 ^3/uL Monocytes # (Auto) 0.6 0-1.3 10 ^3/uL Eosinophils # (Auto) 0.3 0-0.8 10 ^3/uL Basophils # (Auto) 0.1 0-0.2 10 ^3/uL Nucleated Red Blood Cells 0.0 % Prothrombin Time 10.2 9.3-11.8 sec Prothrombin Time INR 0.96 0.9-1.15 Activated Partial Thromboplast Time 28.5 24.5-34.5 SEC Sodium Level 140 136-145 mmol/L Potassium Level 3.8 3.5-5.1 mmol/L Chloride Level 106 98-107 mmol/L Carbon Dioxide Level 23 20-31 mmol/L Anion Gap 11 5-15 Blood Urea Nitrogen 12 9-23 mg/dL Creatinine 0.66 0.550-1.02 mg/dL Glomerular Filtration Rate Calc 107 >90 mL/min BUN/Creatinine Ratio 18.2 10.0-20.0 Serum Glucose 92 74-106 mg/dL Hemoglobin A1c 5.3 <5.7 % A1C Calcium Level 9.6 8.7-10.4 mg/dL Total Bilirubin 0.7 0.2-1.0 mg/dL Aspartate Amino Transferase (AST) 24 13-40 U/L Alanine Aminotransferase (ALT) 35 7-40 U/L Alkaline Phosphatase 75 46-116 U/L Total Protein 7.1 5.7-8.2 g/dL Albumin 4.7 3.2-4.8 g/dL Triglycerides Level 113 < 150 mg/dL Cholesterol Level 145 < 200 mg/dL LDL Cholesterol 81 < 100 mg/dL HDL Cholesterol 55 40-59 mg/dL Thyroid Stimulating Hormone (TSH) 2.26 0.55-4.78 uIU/mL Urine Color Yellow Yellow Urine Clarity Clear Clear Urine pH 6.0 5.0-9.0 Urine Specific [place] 1.037 H 1.001-1.035 Urine Protein Trace H Negative Urine Ketones Negative Negative Urine Blood 1+ H Negative /uL Urine Nitrite Negative Negative Urine Bilirubin Negative Negative Urine Urobilinogen Normal Negative mg/dL Urine Leukocyte Esterase Negative Negative /uL Urine RBC 12 0 - 4 /hpf Urine Microscopic WBC < 1 0-5 /HPF Urine Squamous Epithelial Cells Few <5 /hpf Urine Calcium Oxalate Crystals Mod None Seen Urine Bacteria None seen None Seen /hpf Urine Mucus Few None Seen Urine Glucose Normal Normal mg/dL Urine Opiates Screen Neg NEGATIVE Urine Fentanyl Screen Neg NEGATIVE Urine Barbiturates Screen Neg NEGATIVE Urine Phencyclidine Screen Neg NEGATIVE Urine Amphetamines Screen Neg NEGATIVE Urine Benzodiazepines Screen Neg NEGATIVE Urine Cocaine Screen Neg NEGATIVE Urine Cannabinoids Screen Neg NEGATIVE Troponin I High Sensitivity < 3 L </=34 ng/L D-Dimer, Quantitative 0.29 0.0-0.49 mg/L FEU Assessment Chest pain, likely noncardiac Rule out structural heart disease Dyslipidemia Obesity Plan/Recommendation We will continue with the following plan/recommendations (Dr. Blue): Case reviewed and discussed with . We will proceed with obtaining a transthoracic echocardiogram to evaluate cardiac function. HEART score: 3 points (low score). Given the patient's clinical presentation, negative troponin level, and low HEART score, doubt ACS. In the setting of an unremarkable transthoracic echocardiogram, there is no further inpatient cardiac workup indicated at this time. The patient may follow up with Cardiology in the outpatient setting for further workup if deemed necessary. Thank you for allowing us to care for this patient. Please call with any questions or concerns. Critical care time spent: 41 minutes This medical document was created using an electronic medical record system with voice recognition software and computerized dictation system. Although this document has been carefully reviewed, there might still be some phonetic and typographical errors. Occasional wrong-word or ``sound-alike substitutions may have occurred due to the inherent limitations of voice recognition software. These areas are purely typographical due to imperfections of the software programs and do not reflect any compromise in the patient's medical care. Please read the chart carefully and recognize, using context, where these substitutions have occurred. Plan discussed with: Patient NYHA Physical activity limitations: NA Date of Service: Jan 13, 2025 Billing Provider: ERICK LEMONS Cardiology Common Codes: [id number] INP/OBS CARE (High) Cardiology Consultation Codes: [id number] CONSULT <45MIN ERICK LEMONS Jan 13, 2025 16:38
[2025-01-14 00:57] VITALS: BP 118/76; PULSE 70; RESP 18; TEMP 98.1; O2SAT 96
[2025-01-14 04:58] VITALS: BP 126/67; PULSE 72; RESP 18; TEMP 98.3; O2SAT 96
[2025-01-14 08:00] VITALS: PULSE 71
[2025-01-14 09:00] VITALS: BP 120/77; PULSE 66; RESP 17; TEMP 97.6; O2SAT 98
[2025-01-14 13:00] VITALS: BP 127/77; PULSE 67; RESP 19; TEMP 97.9; O2SAT 100
[2025-01-14 15:21] VITALS: BP 120/77; TEMP 36.6
--- NOTE | 2025-01-14 15:30 | DVHDS2 ---
Discharge Summary Date of Admission Jan 12, 2025 at 20:50 Date of Discharge: Jan 14, 2025 Labs/Diagnostic Data: Laboratory Results Test 01/13/25 03:52 01/13/25 02:00 01/12/25 16:25 01/12/25 15:30 White Blood Count 8.2 10^3/uL (4.4-10.8) Red Blood Count 5.26 10^6/uL (4.0-5.20) Hemoglobin 13.6 g/dL (12.2-16.2) Hematocrit 41.7 % (36.0-46.0) Mean Corpuscular Volume 79.4 fL (80.0-100.0) Mean Corpuscular Hemoglobin 25.9 pg (28.0-32.0) Mean Corpuscular Hemoglobin Concent 32.6 g/dL (32.0-36.0) Red Cell Distribution Width 15.5 % (11.8-14.3) Platelet Count 318 10^3/uL (140-450) Mean Platelet Volume 8.0 fL (6.9-10.8) Neutrophils (%) (Auto) 58.5 % (37.0-80.0) Lymphocytes (%) (Auto) 30.6 % (10.0-50.0) Monocytes (%) (Auto) 7.0 % (0.0-12.0) Eosinophils (%) (Auto) 3.1 % (0.0-7.0) Basophils (%) (Auto) 0.8 % (0.0-2.0) Neutrophils # (Auto) 4.8 10 ^3/uL (1.6-8.6) Lymphocytes # (Auto) 2.5 10 ^3/uL (0.4-5.4) Monocytes # (Auto) 0.6 10 ^3/uL (0-1.3) Eosinophils # (Auto) 0.3 10 ^3/uL (0-0.8) Basophils # (Auto) 0.1 10 ^3/uL (0-0.2) Nucleated Red Blood Cells 0.0 % Prothrombin Time 10.2 sec (9.3-11.8) Prothrombin Time INR 0.96 (0.9-1.15) Activated Partial Thromboplast Time 28.5 SEC (24.5-34.5) Sodium Level 140 mmol/L (136-145) Potassium Level 3.8 mmol/L (3.5-5.1) Chloride Level 106 mmol/L (98-107) Carbon Dioxide Level 23 mmol/L (20-31) Anion Gap 11 (5-15) Blood Urea Nitrogen 12 mg/dL (9-23) Creatinine 0.66 mg/dL (0.550-1.02) Glomerular Filtration Rate Calc 107 mL/min (>90) BUN/Creatinine Ratio 18.2 (10.0-20.0) Serum Glucose 92 mg/dL (74-106) Hemoglobin A1c 5.3 % A1C (<5.7) Calcium Level 9.6 mg/dL (8.7-10.4) Total Bilirubin 0.7 mg/dL (0.2-1.0) Aspartate Amino Transferase (AST) 24 U/L (13-40) Alanine Aminotransferase (ALT) 35 U/L (7-40) Alkaline Phosphatase 75 U/L (46-116) Total Protein 7.1 g/dL (5.7-8.2) Albumin 4.7 g/dL (3.2-4.8) Triglycerides Level 113 mg/dL (< 150) Cholesterol Level 145 mg/dL (< 200) LDL Cholesterol 81 mg/dL (< 100) HDL Cholesterol 55 mg/dL (40-59) Thyroid Stimulating Hormone (TSH) 2.26 uIU/mL (0.55-4.78) Urine Color Yellow (Yellow) Urine Clarity Clear (Clear) Urine pH 6.0 (5.0-9.0) Urine Specific [place] 1.037 (1.001-1.035) Urine Protein Trace (Negative) Urine Ketones Negative (Negative) Urine Blood 1+ /uL (Negative) Urine Nitrite Negative (Negative) Urine Bilirubin Negative (Negative) Urine Urobilinogen Normal mg/dL (Negative) Urine Leukocyte Esterase Negative /uL (Negative) Urine RBC 12 /hpf (0 - 4) Urine Microscopic WBC < 1 /HPF (0-5) Urine Squamous Epithelial Cells Few /hpf (<5) Urine Calcium Oxalate Crystals Mod (None Seen) Urine Bacteria None seen /hpf (None Seen) Urine Mucus Few (None Seen) Urine Glucose Normal mg/dL (Normal) Urine Opiates Screen Neg (NEGATIVE) Urine Fentanyl Screen Neg (NEGATIVE) Urine Barbiturates Screen Neg (NEGATIVE) Urine Phencyclidine Screen Neg (NEGATIVE) Urine Amphetamines Screen Neg (NEGATIVE) Urine Benzodiazepines Screen Neg (NEGATIVE) Urine Cocaine Screen Neg (NEGATIVE) Urine Cannabinoids Screen Neg (NEGATIVE) Troponin I High Sensitivity < 3 ng/L (</=34) D-Dimer, Quantitative 0.29 mg/L FEU (0.0-0.49) Other Laboratory Tests 01/13/25 03:52 Brief Hx & Hospital Course: History of Present Illness The patient is a 49-year-old female with PMHx of HLD and GERD presenting with 4 days of left-sided chest pain. She describes the pain as intermittent, sharp in nature, sometimes radiating to the left arm, She notes tenderness on palpation around the chest wall, and the pain also increases with arm movement. The patient states the discomfort worsens when she takes a deep breath, suggesting a pleuritic component. She denies classical angina symptoms (e.g., no chest pressure or pain on exertion), and she reports no aggravation of pain when walking. She endorses mild shortness of breath, which she attributes to the pain itself. She denies chills, diaphoresis, or other systemic symptoms. In the ED, her initial blood pressure was 158/89 mmHg with a heart rate of 102 bpm; other vital signs were within normal limits. Laboratory workup, including CBC, chemistry panel, and multiple troponin measurements, was normal. A D-dimer test was also within normal limits. The EKG showed normal sinus rhythm no evidence of blocks or hypertrophy, and normal ST segments. A chest radiograph revealed no acute disease. Course of hospitalization: Further interrogation of the patient reveals that she has history of palpitations, with sudden onset of pain that would wake her probable of the night. Cardiology consultation was obtained. Patient underwent TTE with results unremarkable. engine monitor reveals no ectopy whatsoever. Findings were discussed with the patient. Patient will be discharged home and is instructed to follow up with her PCP at her appointment next Friday. Physical examination General: Alert and Oriented x3. No acute distress. Well-nourished. Obese Eyes: EOMI. Anicteric. HENT: Moist mucous membranes. Lungs: Clear to auscultation bilaterally. No accessory muscle use. Cardiovascular: Regular rate and rhythm. No murmur. No JVD. Abdomen: Soft, non-tender and non-distended. No palpable masses. Extremities: No edema. Non-tender. Skin: No rashes or lesions. Warm. Neurologic: No focal neurological deficits. CN II-XII grossly intact, but not individually tested. Psychiatric: Cooperative. Appropriate mood and affect. Total time spent with patient discussing and formulating plan of care: 35 minutes. This medical document was created using an electronic medical record system with [employer] system. Although this document has been carefully reviewed, there may still be some phonetic and typographical errors. These areas are purely typographical due to imperfections of the software programs, and do not reflect any compromise in the patient's medical care. Consults/Reason for consult Cardiology: Rule out ACS Condition at Discharge: Fair Final Diagnosis/Problems List Chest pain, probably musculoskeletal in nature Secondary diagnosis -ruled out ACS - GERD -obesity -questionable cardiac dysrhythmia given patient's reports of palpitations Discharge Disposition: Home Discharge Instruct/Medications Diet: Regular Activity: No Restrictions, As Tolerated Follow Up/Referral: PCP at scheduled appointment Medications: continue all home medications 36 Discharge Statement: "Patient was advised to return to the ER or call 911 if any headaches, dizziness, shortness of breath, chest pain, abdominal pain, bleeding, fevers, or worsening of medical condition. Patient was counseled about treatment plan, medications, possible side effects, patientverbalized understanding. All questions were answered to the best of my ability. This discharge took greater then 30 minutes in planning, reviewing documentation, counseling the patient, and discussing with other team members." ASSESSMENT ASSESSMENT Assessment Chest pain, probably musculoskeletal in nature Date of Service: Jan 14, 2025 Billing Provider: CHUY VOGEL NP Common Visit Codes: 28824-KGY/OBS DISCH DAY >30min CHUY VOGEL NP Jan 14, 2025 15:30
--- NOTE | 2025-01-14 17:19 | DVHSR ---
APPROVED REPORT EXAM: Two-dimensional and M-mode echocardiogram with Doppler and color Doppler. Blood Pressure: 124/79 mmHg INDICATION Eval Cardiac Function Assess wall motion RISK FACTORS Height: 5' 1", Weight: 166 DIMENSIONS LVDd4.2 (3.8-5.7cm)LA (2D)3.8 (1.9-4.0cm)Aortic Root3.0 (2.0-3.7cm) LVDs2.7 (2.5-4.0cm)LA (MM) (1.9-4.0cm)Aortic Cusp Exc1.8 (1.5-2.0cm) EF (%) 64.0 (55-70%)Rt. Atrium3.9 (1.9-4.0cm)Asc. Aorta cm IVSd1.1 (0.7-1.1cm)RV (D) (1.8-2.4cm) PWd1.0 (0.7-1.1cm) Mitral Valve MitralMitral Stenosis E wave0.80m/sMV Mean GR.mmHg A wave0.90m/sMV Peak GR.mmHg E/A ratio0.92D MVAcm2 Aortic Valve Aortic ValveAortic Stenosis V10.90m/Shaye Mean GR.4mmHg V21.30m/Shaye Peak GR.7mmHg LVOT Diameter2.0 (1.8-2.4cm)Doppler AVA2.17cm2 Pulmonic Valve V20.50m/s Conclusion lvef 60% by visual estimate mild LVH normal rv function no severe valve abnormalites noted
== END 2025-01-14 16:10 | disposition home or self-care (01) | DRG 313 ==
LOC: ER 15:24 → OVERFLOW 20:50 → WEST WING 23:59 → TELE-WESTW 01-14 01:36
PROVIDERS: ADMIT Nurse Practitioner Acute Care; ATTEND Nurse Practitioner Acute Care
DX: R07.89 Other chest pain (principal); I16.9 Hypertensive crisis, unspecified; E66.9 Obesity, unspecified; E78.5 Hyperlipidemia, unspecified; K21.9 Gastro-esophageal reflux disease without esophagitis; Z68.32 Body mass index [BMI] 32.0-32.9, adult; Z79.899 Other long term (current) drug therapy; Z90.710 Acquired absence of both cervix and uterus; Z90.49 Acquired absence of other specified parts of digestive tract
CPT/HCPCS: 36415; 71045; 80048; 80053; 80061; 80307; 81001; 83036; 84443; 84484; 85025; 85379; 85610; 85730; 93005; 93306; 99291; G0378; J1885

== ENCOUNTER 2025-05-17 01:39 | Inpatient (IN) | payer BC ==
[~2025-05-17] VITALS: Ht 152.4 cm; Wt 78.6 kg
[~2025-05-17 01:39] MED LIST changes: +ATOR10TA52 PO; -CEPH250C PO
[2025-05-17] MEDS: SODIUM CHLORIDE 0.9% 1,000 ML IV ONE (02:15)
--- NOTE | 2025-05-17 02:25 | ED.PDOC ---
History of Present Illness HPI Comments 50 y/o obese F is BIBA for left arm numbness and left lower back and thigh pain. Patient endorses on onset of symptoms at around 2230, last night, when attempting to go the restroom. Only history of HLD and lifting heavy objects through her job at [email or web address]. No recent injuries endorsed. Patient denies any facia l droop, vision or speech changes, weakness, or further associated symptoms. Chief Complaint: Back Pain Time Seen by MD: 02:00 Primary Care Provider: ANH Allergies: Coded Allergies: Penicillins (Verified Allergy, Unknown, 01/12/25) Home Meds Active Scripts Pantoprazole Sodium Sesquihydr (Protonix) 40 Mg Tab, 40 MG PO DAILY for 5 Days, #5 TAB Prov:GIOVANNI GIBBONS MD 11/13/24 Reported Medications Atorvastatin Calcium (ATORVASTATIN CALCIUM) 10 Mg Tab, 1 TAB PO DAILY, #30 TAB 5 Refills 01/13/25 Information Source: Patient, Emergency Med Personnel Mode of Arrival: EMS Severity: Moderate Timing: Hours Duration: Since onset Prehospital treatment: 12 Lead EKG, Accucheck, Emergency Medicine Specialist, Pain Meds, Treatment Past Medical History PAST MEDICAL HISTORY: GERD, High Lipids Surgical History: Cholecystectomy, Hysterectomy RN HEMODIALYSIS CHARGE History: No Pertinent RN HEMODIALYSIS CHARGE History Family History Family History: Reviewed,noncontributory to illness, Unknown Social History Smoker: Non-Smoker Alcohol: Denies ETOH Use Drugs: Denies Drug Use Lives In: Home All Other Systems: Reviewed and Negative (Comprehensive systems review obtained and negative except for what is stated in the HPI.) Physical Exam General Appearance: No Apparent Distress, Obese HEENT: Normal ENT Inspection, Pharynx Normal, TMs Normal Neck: Full Range of Motion, Non-Tender, Normal, Normal Inspection Respiratory: Chest Non-Tender, Lungs Clear, No Accessory Muscle Use, No Respiratory Distress, Normal Breath Sounds Cardiovascular: No Edema, No JVD, No Murmur, No Gallop, Normal Peripheral Pulse s, Regular Rate/Rhythm Breast Exam: Deferred Gastrointestinal: No Organomegaly, Non Tender, No Pulsatile Mass, Normal Bowel Sounds, Soft Genitalia: Deferred Pelvic: Deferred Rectal: Deferred Extremities: No calf tenderness, Normal capillary refill, Normal range of motion, No pedal edema, Other (positive straight leg raise test.) Musculoskeletal : Apperance: Normal Neurologic: Alert, assistant signal maintainer II-XII nml as Tested, No Motor Deficits, Normal Affect, Normal Mood, No Sensory Deficits Cerebellar Function: Normal Reflexes: Normal Skin: Dry, Normal Color, Warm Lymphatic: No Adenopathy Was a procedure done? Was a procedure done?: No Differential Dx Considerations may include: CVA, TIA, sciatica, chronic pain syndrome, strain, electrolyte imbalance, among others X-Ray, Labs, Meds, VS Vital Signs Date Time Temp Pulse Resp B/P (MAP) Pulse Ox O2 Delivery O2 Flow Rate FiO2 05/17/25 02:52 98.1 78 18 120/78 (92) 98 98.1 05/17/25 02:52 78 18 96 Room Air* 0 21 05/17/25 01:56 97.3 84 18 143/70 (94) 98 97.3 Lab Test 05/17/25 02:13 Range/Units White Blood Count 7.2 4.4-10.8 10^3/uL Red Blood Count 5.07 4.0-5.20 10^6/uL Hemoglobin 13.2 12.2-16.2 g/dL Hematocrit 39.6 36.0-46.0 % Mean Corpuscular Volume 78.0 L 80.0-100.0 fL Mean Corpuscular Hemoglobin 26.0 L 28.0-32.0 pg Mean Corpuscular Hemoglobin Concent 33.3 32.0-36.0 g/dL Red Cell Distribution Width 15.1 H 11.8-14.3 % Platelet Count 282 140-450 10^3/uL Mean Platelet Volume 7.9 6.9-10.8 fL Neutrophils (%) (Auto) 51.6 37.0-80.0 % Lymphocytes (%) (Auto) 37.3 10.0-50.0 % Monocytes (%) (Auto) 7.4 0.0-12.0 % Eosinophils (%) (Auto) 2.7 0.0-7.0 % Basophils (%) (Auto) 1.0 0.0-2.0 % Neutrophils # (Auto) 3.7 1.6-8.6 10 ^3/uL Lymphocytes # (Auto) 2.7 0.4-5.4 10 ^3/uL Monocytes # (Auto) 0.5 0-1.3 10 ^3/uL Eosinophils # (Auto) 0.2 0-0.8 10 ^3/uL Basophils # (Auto) 0.1 0-0.2 10 ^3/uL Nucleated Red Blood Cells 0.0 % Sodium Level 142 136-145 mmol/L Potassium Level 4.2 3.5-5.1 mmol/L Chloride Level 108 H 98-107 mmol/L Carbon Dioxide Level 25 20-31 mmol/L Anion Gap 9 5-15 Blood Urea Nitrogen 11 9-23 mg/dL Creatinine 0.82 0.550-1.02 mg/dL Glomerular Filtration Rate Calc 87 >90 mL/min BUN/Creatinine Ratio 13.4 10.0-20.0 Serum Glucose 99 74-106 mg/dL Calcium Level 8.9 8.7-10.4 mg/dL Troponin I High Sensitivity < 3 L </=34 ng/L Current Medications Medications (Trade) Dose Ordered Sig/Anayeli Route Start Time Stop Time Status Last Admin Sodium Chloride 1,000 ml @ 1,000 mls/hr Q1H ONCE IV 05/17/25 02:15 05/17/25 03:14 DC 05/17/25 02:15 Time of 1ST Reevaluation: 02:30 Reevaluation 1ST: Unchanged Patient Education/Counseling: Diagnosis, Treatment Family Education/Counseling: No Family Present Additional Information Previous visits reviewed: January 12, 2025 encounter for chest pain. The following tests were ordered, and results were reviewed by me: CT head without contrast, chest x-ray, UA, troponin, CBC, BNP, lumbar x-ray Additional Information was gathered from interviewing the following independent historians: EMS I reviewed and agreed with the following test results read by other providers: CT head without contrast, chest x-ray, lumbar x-ray, I discussed treatment and results with medical personnel and: patient SEPSIS Sepsis Screen Date sepsis recognized/suspect: May 17, 2025 Time Sepsis recognized/suspect: 0146 Recent Procedure: No On Antibiotic Therapy: No Respiratory Rate >20: No Heart Rate >90: No Temp<36 C (96.8 F) or >38.3 C: No SBP <90 or MAP <65 mmHG: No New Acute Mental Status Change: No Is the patient on CPAP, BIPAP,: No Physician Orders Lumbar Spine 3 View (05/17/25 02:07) Urinalysis (05/17/25 02:07) Chest Portable (05/17/25 02:07) Head Without Contrast (05/17/25 02:07) Troponin-I Hs (05/17/25 03:07) Troponin-I Hs (05/17/25 05:07) Vital Signs Date Time Temp Pulse Resp B/P (MAP) Pulse Ox O2 Delivery O2 Flow Rate FiO2 05/17/25 02:52 98.1 78 18 120/78 (92) 98 98.1 05/17/25 02:52 78 18 96 Room Air* 0 21 05/17/25 01:56 97.3 84 18 143/70 (94) 98 97.3 Laboratory Tests Test 05/17/25 02:13 White Blood Count 7.2 10^3/uL (4.4-10.8) Medications Medications Dose Ordered Sig/Anayeli Route Start Time Stop Time Status Last Admin Dose Admin Sodium Chloride 1,000 ml @ 1,000 mls/hr Q1H ONCE IV 05/17/25 02:15 05/17/25 03:14 DC 05/17/25 02:15 Departure 1 Departure Time of Disposition: 03:15 (Patient likely with sciatica with a positive straight leg raise however my judgment the patient reports this left-sided arm numbness but he is out of the window for any acute stroke intervention. We will admit patient for further workup and neurology consultation.) Impression: Primary Impression: Left arm numbness Additional Impression: Sciatica Qualified Codes: M54.32 - Sciatica, left side Disposition: 09 ADMITTED INPATIENT Admit to: Med Surg Condition: Serious Critical Care Note Critical Care Time?: Yes Critical care comment: Concern for CVA Authorized and Performed by: Edinson Blue MD Total critical care time: Approximately 38 minutes Due to a high probability of clinically significant, life threatening deterior ation, the patient required my highest level of preparedness to intervene emergently and I personally spent this critical care time directly and personally managing the patient. This critical care time included obtaining a history; examining the patient; pulse oximetry; ordering and review of studies; arranging urgent treatment with development of a management plan; evaluation of patient's response to treatment; frequent reassessment; and, discussions with other providers. This critical care time was performed to assess and manage the high probability of imminent, life-threatening deterioration that could result in multi-organ failure. It was exclusive of separately billable procedures and treating other patients and teaching time. Please see my other sections and the rest of the note for further information on patient assessment and treatment. Stability Stability form required: No Heart Score Heart Score: Heart Score Response (Comments) Value History N/A 0 EKG N/A 0 Age N/A 0 Risk Factors N/A 0 Troponin N/A 0 Total 0 I personally scribed for EDINSON BLUE MD ([email or web address]) on 05/17/25 at 02:25. Electronically submitted by Adrien Brady ([email or web address]). EDINSON BLUE MD May 17, 2025 02:25
[2025-05-17 02:35] LABS: Basophils # (auto) 0.1 10 ^3/uL (0-0.2); Eosinophils # (auto) 0.2 10 ^3/uL (0-0.8); Hematocrit 39.6 % (36.0-46.0); Hemoglobin 13.2 g/dL (12.2-16.2); Lymphocytes # (auto) 2.7 10 ^3/uL (0.4-5.4); Monocytes # (auto) 0.5 10 ^3/uL (0-1.3); Monocytes % (auto) 7.4 % (0.0-12.0); Neutrophils # (auto) 3.7 10 ^3/uL (1.6-8.6)
[2025-05-17 02:36] LABS: Potassium 4.2 mmol/L (3.5-5.1); Sodium 142 mmol/L (136-145)
[2025-05-17 02:37] LABS: Anion Gap 9 (5-15); Carbon Dioxide 25 mmol/L (20-31); Eosinophils % (auto) 2.7 % (0.0-7.0); Lymphocytes % (auto) 37.3 % (10.0-50.0); Mean Corpuscular Hgb Conc. 33.3 g/dL (32.0-36.0); Neutrophils % (auto) 51.6 % (37.0-80.0); Platelet Count (auto) 282 10^3/uL (140-450); Red Blood Cells 5.07 10^6/uL (4.0-5.20); Red Cell Distribution Width 15.1 % (11.8-14.3); White Blood Cell 7.2 10^3/uL (4.4-10.8)
[2025-05-17 02:38] LABS: Calcium 8.9 mg/dL (8.7-10.4)
[2025-05-17 02:39] LABS: Chloride 108 mmol/L (98-107)
[2025-05-17 02:42] LABS: BUN/Creatinine Ratio 13.4 (10.0-20.0); Blood Urea Nitrogen 11 mg/dL (9-23); Glucose 99 mg/dL (74-106)
[2025-05-17 02:52] VITALS: PULSE 78; RESP 18; O2SAT 96
--- NOTE | 2025-05-17 03:01 | DVH ---
CHEST RADIOGRAPH Indication: left arm numbness Technique: Single frontal view of the chest was obtained COMPARISON: XY CHEST PORTABLE on DOS: 01/12/25 FINDINGS: Lines and Tubes: None Lungs: Clear Pleura: No effusion. No pneumothorax. Cardiomediastinal contours: Unremarkable Bones: Unremarkable IMPRESSION: 1. No acute disease.
--- NOTE | 2025-05-17 03:03 | DVH ---
EXAM: CT HEAD WITHOUT CONTRAST INDICATION: left arm numbness TECHNIQUE: CT of the head without intravenous contrast. Radiation Dose : 1. Head: CT Dose: CTDI volume is 51.82 mGy. Dose-length product is 830.91 mGy*cm The dose indicators for CT are the volume Computed Tomography (CT) Dose Index (CTDIvol) and the Dose Length Product (DLP), and are measured in units of mGy and mGy-cm, respectively. These indicators are not patient dose, but values generated from the CT scanner acquisition factors. The report includes radiation exposure data for exposures received during this examination. COMPARISON: None FINDINGS: There is no evidence of acute intracranial hemorrhage, extra-axial collection, mass effect, midline s hift, herniation or hydrocephalus. The ventricles, sulci and cisterns are age appropriate. The ugalde-white differentiation is intact. The visualized paranasal sinuses and mastoid air cells are clear. The surrounding soft tissues and osseous structures are unremarkable. IMPRESSION: 1. No acute intracranial abnormality. Radiation optimization: All CT scans at this facility use at least one of these dose optimization edison hniques: automated exposure control mA and/or kV adjustment per patient size (includes targeted exam s where dose is matched to clinical indication) or iterative reconstruction.
--- NOTE | 2025-05-17 03:27 | DVH ---
INDICATION: lower back pain COMPARISON: None TECHNIQUE: 2 views of the lumbar spine were obtained. FINDINGS: The lumbar vertebral alignment is normal. The intervertebral disc spaces are well-maintained. No significant facet arthropathy is noted. No acute fracture, vertebral compression deformity or aggressive osseous lesions. The paravertebral soft tissues are grossly unremarkable. Right upper quadrant surgical clips. IMPRESSION: 1. No acute fracture.
[2025-05-17] MEDS: MORPHINE SULFATE 4 MG/ML SYR/VIAL IV ONE (07:30)
[2025-05-17] MEDS: ONDANSETRON HCL 4 MG/2 ML VIAL IV ONE (07:30)
[2025-05-17 07:47] LABS: Urine Bacteria None Seen /hpf (None Seen)
[2025-05-17 08:10] LABS: Urine Blood Negative /uL (Negative); Urine Clarity Clear (Clear); Urine Color Light-Yellow (Yellow); Urine Protein, UAD Negative (Negative); Urine Specific Gravity 1.017 (1.001-1.035); Urine Squamous Epithelial Cell FEW /hpf (<5); Urine Urobilinogen Normal (Negative); Urine WBC 1 /HPF (0-5)
[2025-05-17] MEDS ORDERED: MORPHINE SULFATE INJ 2 MG/ml SYRG IV PRN (08:15)
[2025-05-17] MEDS ORDERED: ONDANSETRON HCL 4 MG/2 ML VIAL IV PRN (08:15)
[2025-05-17] MEDS ORDERED: NITROGLYCERIN 0.4 MG SL TAB SL PRN (08:15)
[2025-05-17] MEDS ORDERED: DOCUSATE SOD 100 MG CAP PO PRN (08:15)
--- NOTE | 2025-05-17 08:30 | DVHHP2 ---
History of Present Illness Reason for Visit: Back pain History of Present Illness Abril Warren is a 50-year-old female with past medial history of hyperlipidemia, who came to the hospital due to left sided back pain. She states the pain began yesterday while at work. She took some Tylenol and it seemed better. Later she began experiencing left sided numbness and tingling. She states it was her entire left side of her body, face, arm, and leg, prompting her to come to the hospital. At the time of assessment she states the numbness and tingling has improved, but she is still experiencing pain, and left sided weakness. Cardiovascular: hyperipidemia Past Surgical History: Cholecystectomy, Hysterectomy Smoke: No ALCOHOL: none Drugs: None Lives: with Family Domestic Violence: Neg Review of Systems Constitutional: No: Fever, Chills, Sweats, Weakness, Malaise, Other Eyes: No: Pain, Vision change, Conjunctivae inflammation, Eyelid inflammation, Other, Redness ENT: No: Ear pain, Ear discharge, Nose pain, Nose discharge, Nose congestion, Mouth pain, Mouth swelling, Throat pain, Throat swelling, Other Respiratory: No: Cough, Dry, Shortness of breath, SOB with excertion, Wheezing, Hemoptysis, Pleuritic Pain, Sputum, Wheezing, Other Cardiovascular: No: Chest Pain, Palpitations, Orthopnea, Paroxysmal Noc. Dyspnea, Edema, Lt Headedness, Other Gastrointestinal: Nausea; No: Vomiting, Abdominal Pain, Diarrhea, Constipation, Melena, Hematochezia, Other Genitourinary: No Dysuria, No Frequency, No Incontinence, No Hematuria, No Retention, No Other Musculoskeletal: back pain (left low back pain that radiates down left leg), leg pain (left leg pain); No: other, neck pain, shoulder pain, arm pain, hand pain, foot pain Skin: No: Rash, Lesions, Jaundice, Bruising, Other Neurological: Weakness (left sided weakness), Numbness (and tingling on left side of body this morning); No: Incoordination, Change in speech, Confusion, Seizures, Other Allergies: Coded Allergies: Penicillins (Verified Allergy, Unknown, 01/12/25) Medications Current Medications Medications Dose Ordered Sig/Anayeli Route Start Time Stop Time Status Last Admin Dose Admin Acetaminophen/ Hydrocodone Bitart 1 tab Q4HP PRN PO 05/17/25 08:15 UNV Ondansetron HCl 4 mg Q4HP PRN IV 05/17/25 08:15 UNV Docusate Sodium 100 mg BIDPRN PRN PO 05/17/25 08:15 UNV Acetaminophen 650 mg Q6HP PRN PO 05/17/25 08:15 UNV Nitroglycerin 0.4 mg Q5MINP PRN SL 05/17/25 08:15 UNV Morphine Sulfate 2 mg Q30M PRN IV 05/17/25 08:15 UNV Patient Own Medication 1 tab DAILY PO 05/17/25 10:00 UNV Exam Vital Signs Vital Signs Date Time Temp Pulse Resp B/P (MAP) Pulse Ox O2 Delivery O2 Flow Rate FiO2 05/17/25 06:02 98.1 78 18 121/87 (98) 96 98.1 05/17/25 02:52 Room Air* 0 21 General Appearance: Alert, Oriented X3, Cooperative, mild distress HEENT: Atraumatic, PERRLA Respiratory: Clear to auscultation, Normal air movement Cardiovascular: Regular rate, Normal S1, Normal S2, No murmurs Abdominal: Normal bowel sounds, Soft, No tenderness, No hepatospenomegaly Extremities: No clubbing, No cyanosis, No edema, Normal pulses Skin: No rashes, No breakdown, No significant lesion Neuro: Normal speech, Other (left leg weaker than right) Psych/Mental Status: Mental status NL, Mood NL Labs/Xrays Labs Test 05/17/25 07:45 05/17/25 06:38 05/17/25 02:13 Range/Units Troponin I High Sensitivity < 3 L </=34 ng/L White Blood Count 7.2 4.4-10.8 10^3/uL Red Blood Count 5.07 4.0-5.20 10^6/uL Hemoglobin 13.2 12.2-16.2 g/dL Hematocrit 39.6 36.0-46.0 % Mean Corpuscular Volume 78.0 L 80.0-100.0 fL Mean Corpuscular Hemoglobin 26.0 L 28.0-32.0 pg Mean Corpuscular Hemoglobin Concent 33.3 32.0-36.0 g/dL Red Cell Distribution Width 15.1 H 11.8-14.3 % Platelet Count 282 140-450 10^3/uL Mean Platelet Volume 7.9 6.9-10.8 fL Neutrophils (%) (Auto) 51.6 37.0-80.0 % Lymphocytes (%) (Auto) 37.3 10.0-50.0 % Monocytes (%) (Auto) 7.4 0.0-12.0 % Eosinophils (%) (Auto) 2.7 0.0-7.0 % Basophils (%) (Auto) 1.0 0.0-2.0 % Neutrophils # (Auto) 3.7 1.6-8.6 10 ^3/uL Lymphocytes # (Auto) 2.7 0.4-5.4 10 ^3/uL Monocytes # (Auto) 0.5 0-1.3 10 ^3/uL Eosinophils # (Auto) 0.2 0-0.8 10 ^3/uL Basophils # (Auto) 0.1 0-0.2 10 ^3/uL Nucleated Red Blood Cells 0.0 % Sodium Level 142 136-145 mmol/L Potassium Level 4.2 3.5-5.1 mmol/L Chloride Level 108 H 98-107 mmol/L Carbon Dioxide Level 25 20-31 mmol/L Anion Gap 9 5-15 Blood Urea Nitrogen 11 9-23 mg/dL Creatinine 0.82 0.550-1.02 mg/dL Glomerular Filtration Rate Calc 87 >90 mL/min BUN/Creatinine Ratio 13.4 10.0-20.0 Serum Glucose 99 74-106 mg/dL Calcium Level 8.9 8.7-10.4 mg/dL CHEST RADIOGRAPH FINDINGS: Lines and Tubes: None Lungs: Clear Pleura: No effusion. No pneumothorax. Cardiomediastinal contours: Unremarkable Bones: Unremarkable IMPRESSION: 1. No acute disease. EXAM: CT HEAD WITHOUT CONTRAST FINDINGS: There is no evidence of acute intracranial hemorrhage, extra-axial collection, mass effect, midline shift, herniation or hydrocephalus. The ventricles, sulci and cisterns are age appropriate. The ugalde-white differentiation is intact. The visualized paranasal sinuses and mastoid air cells are clear. The surrounding soft tissues and osseous structures are unremarkable. IMPRESSION: 1. No acute intracranial abnormality. INDICATION: lower back pain FINDINGS: The lumbar vertebral alignment is normal. The intervertebral disc spaces are well-maintained. No significant facet arthropathy is noted. No acute fracture, vertebral compression deformity or aggressive osseous lesions. The paravertebral soft tissues are grossly unremarkable. Right upper quadrant surgical clips. IMPRESSION: 1. No acute fracture. Assessment/Plan Assessment/Plan Assessment: Possible TIA, Possible CVA, Possible sciatica nerve pain, Hyperlipidemia, Plan: Admit to Tele, Neurology consult, Consider MRI of brain, Physical therapy evaluation, Pain management, Carotid duplex, ECHO, Home medications reconciled, Plan discussed with: Patient My Orders Orders - PIEDAD KUMAR Procedure Category Date Status Time Admit ADMIT 05/17/25 Transmitted 08:06 Code Status CODE 05/17/25 Transmitted 08:06 Hydrocodone-Acet PHA 05/17/25 Logged 5/325mg Tab ([place] 08:15 Ondansetron Hcl PHA 05/17/25 Logged (Zofran) 08:15 Docusate Sodium PHA 05/17/25 Logged Capsule (Colace 08:15 Complete Blood Count LAB 05/18/25 Verified 04:00 Comprehensive LAB 05/18/25 Verified Metabolic Panel 04:00 Condition: Serious [facility]IAN 05/17/25 In Process 08:06 Acetaminophen Tablet PHA 05/17/25 Logged (Tylenol Tablet) 08:15 Nitroglycerin PHA 05/17/25 Logged Sublingual (Ntrostat 08:15 Morphine Sulfate PHA 05/17/25 Logged Injection 08:15 Stat Ekg For Chest CH[facility]STIAN 05/17/25 In Process Pain 08:06 Notify Md Of Changes [facility]STIAN 05/17/25 In Process From Base 08:06 Program Support Clerk For [facility] 05/17/25 In Process 24 Hours 08:06 Emergency Dysrhythmia [facility]STIAN 05/17/25 In Process Protocol 08:06 Rhythm Strips Once [facility] 05/17/25 In Process Every Shift 08:06 Oxygen By Nasal RT 05/17/25 Transmitted Cannula 08:06 * Neurology Consult CONS 05/17/25 Transmitted 08:06 (Nf) Atorvastatin PHA 05/17/25 Logged Calcium 10:00 Date of Service: May 17, 2025 Billing Provider: PIEDAD KUMAR Common Visit Codes: [id number] INP/OBS CARE (MOD) PIEDAD KUMAR May 17, 2025 08:30
--- NOTE | 2025-05-17 08:58 | DVHINCON2 ---
Date of service: May 17, [address] Rivera Reason for Consultation Possible TIA History of Present Illness Ms. Barlow is a 50 years old right-handed female with a history of dyslipidemia, GERD, right ear deafness, she came to the hospital on 05/17/2025 with a chief company of left low back pain, but she was has other complaints When she is standing in her office in the morning on 05/16/2025, she developed pain in the low back which went away in about 10 minutes; unfortunately, the patient returned in the evening after she returned home, which was follow up with by numbness and tingling in the left face, arm than leg, along with mild left arm leg weakness. Her problem stay for about 2-3 hours, and she reports no similar experience previously, she denies history of stroke, seizure or other major medical problems Urinalysis, : Unremarkable CBC, 05/17/2025: MCV, 78 BMP, 05/17/2025: Unremarkable TG/HDL/LDL/HDL, 12/2024: 113/145/81/55 CT head, 05/17/2025: No acute intracranial abnormality. Past Medical History Dyslipidemia, GERD, right ear deafness with unknown etiology. She denies a history of anxiety, depression Past Surgical History Cholecystectomy, hysterectomy Family History: FH: ovarian cancer G8 MOTHER FH: pancreatic cancer G8 FATHER Family History Cancer Social History She is not a tobacco smoke, she denies a history of alcohol or recreational substances abuse Allergies: Coded Allergies: Penicillins (Verified Allergy, Unknown, 01/12/25) Home Meds Active Scripts Pantoprazole Sodium Sesquihydr (Protonix) 40 Mg Tab, 40 MG PO DAILY for 5 Days, #5 TAB Prov:GIOVANNI GIBBONS MD 11/13/24 Reported Medications Atorvastatin Calcium (ATORVASTATIN CALCIUM) 10 Mg Tab, 1 TAB PO DAILY, #30 TAB 5 Refills 01/13/25 Current Medications Current Medications Medications (Trade) Dose Ordered Sig/Anayeli Route PRN Reason Start Time Stop Time Status Last Admin Acetaminophen/ Hydrocodone Bitart ([place] 5/325MG Tab) 1 tab Q4HP PRN PO MODERATE PAIN (4-6 PAIN SCALE) 05/17/25 08:15 Ondansetron HCl (Zofran) 4 mg Q4HP PRN IV NAUSEA / VOMITING 05/17/25 08:15 Docusate Sodium (Colace Capsule) 100 mg BIDPRN PRN PO FOR CONSTIPATION 05/17/25 08:15 Acetaminophen (Tylenol Tablet) 650 mg Q6HP PRN PO PAIN SCALE 1-3 OR TEMP>100.4 05/17/25 08:15 Nitroglycerin (Ntrostat Sublingual) 0.4 mg Q5MINP PRN SL FOR CHEST PAIN 05/17/25 08:15 Morphine Sulfate 2 mg Q30M PRN IV FOR CHEST PAIN 05/17/25 08:15 Atorvastatin Calcium (Lipitor) 10 mg HS PO 05/17/25 22:00 Review of Systems As above, the other systems are negative Vital Signs Vital Signs Date Time Temp Pulse Resp B/P (MAP) Pulse Ox O2 Delivery O2 Flow Rate FiO2 05/17/25 06:02 98.1 78 18 121/87 (98) 96 98.1 05/17/25 02:52 Room Air* 0 21 Physical Exam GENERAL EXAM: General: the patient is well developed and nourished. No acute distress. HEENT: Normocephalic, neck is supple, no carotid bruits. No mass. RESPIRATORY: Normal respiratory effort with symmetrical lung expansion. Lungs clear to auscultation. CARDIOVASCULAR: Regular rate and rhythm with no murmurs. S1, S2. ABDOMEN: Soft, nontender, normal bowel sound NEUROLOGICAL: MENTAL STATUS: Awake and alert. Oriented to person, place, time and general circumstances. Able to give personal history. SPEECH, LANGUAGE, HIGHER CORTICAL FUNCTION: no aphasia or dysathria. CRANIAL NERVES: #2: Intact visual lopez to confrontation. The optic discs were sharp.. #3,4,6: Pupils are equal, round and reactive. EOMs full and conjugate. No nystagmus. #5: Facial sensation intact in all three divisions bilaterally. Mandibular strength intact. #7: Facial muscles symmetrical and strength intact. #8: Diminished hearing in the right ear #9,10: Uvula and soft palate rise in the midline. Swallow and voice are normal. #11: Trapezius and sternomastoid strength intact bilaterally. #12: Tongue midline. No fasciculations or atrophy. SENSATION: Sensation to touch and pinprick is normal. MOTOR: Normal tone in the upper and lower extremity. Normal muscle bulk. No fasciculations. No abnormal movements or posturing. Muscle strength of the major groups in the upper extremities is 5/5. Muscle strength of the major groups in the lower extremities is 5/5. REFLEXES: Deep tendon reflexes normal and symmetrical. No pathological reflexes. CEREBELLAR/COORDINATION: Finger to nose is normal bilaterally. GAIT/STATION: deferred. Mild low back tenderness to palpation Labs/Diagnostic Data Labs Test 05/17/25 07:45 05/17/25 06:38 05/17/25 02:13 Range/Units Urine Color Light-yellow Yellow Urine Clarity Clear Clear Urine pH 7.0 5.0-9.0 Urine Specific [place] 1.017 1.001-1.035 Urine Protein Negative Negative Urine Ketones Negative Negative Urine Blood Negative Negative /uL Urine Nitrite Negative Negative Urine Bilirubin Negative Negative Urine Urobilinogen Normal Negative mg/dL Urine Leukocyte Esterase Negative Negative /uL Urine RBC 5 0 - 4 /hpf Urine Microscopic WBC 1 0-5 /HPF Urine Squamous Epithelial Cells Few <5 /hpf Urine Bacteria None seen None Seen /hpf Urine Glucose Normal Normal mg/dL Troponin I High Sensitivity < 3 L </=34 ng/L White Blood Count 7.2 4.4-10.8 10^3/uL Red Blood Count 5.07 4.0-5.20 10^6/uL Hemoglobin 13.2 12.2-16.2 g/dL Hematocrit 39.6 36.0-46.0 % Mean Corpuscular Volume 78.0 L 80.0-100.0 fL Mean Corpuscular Hemoglobin 26.0 L 28.0-32.0 pg Mean Corpuscular Hemoglobin Concent 33.3 32.0-36.0 g/dL Red Cell Distribution Width 15.1 H 11.8-14.3 % Platelet Count 282 140-450 10^3/uL Mean Platelet Volume 7.9 6.9-10.8 fL Neutrophils (%) (Auto) 51.6 37.0-80.0 % Lymphocytes (%) (Auto) 37.3 10.0-50.0 % Monocytes (%) (Auto) 7.4 0.0-12.0 % Eosinophils (%) (Auto) 2.7 0.0-7.0 % Basophils (%) (Auto) 1.0 0.0-2.0 % Neutrophils # (Auto) 3.7 1.6-8.6 10 ^3/uL Lymphocytes # (Auto) 2.7 0.4-5.4 10 ^3/uL Monocytes # (Auto) 0.5 0-1.3 10 ^3/uL Eosinophils # (Auto) 0.2 0-0.8 10 ^3/uL Basophils # (Auto) 0.1 0-0.2 10 ^3/uL Nucleated Red Blood Cells 0.0 % Sodium Level 142 136-145 mmol/L Potassium Level 4.2 3.5-5.1 mmol/L Chloride Level 108 H 98-107 mmol/L Carbon Dioxide Level 25 20-31 mmol/L Anion Gap 9 5-15 Blood Urea Nitrogen 11 9-23 mg/dL Creatinine 0.82 0.550-1.02 mg/dL Glomerular Filtration Rate Calc 87 >90 mL/min BUN/Creatinine Ratio 13.4 10.0-20.0 Serum Glucose 99 74-106 mg/dL Calcium Level 8.9 8.7-10.4 mg/dL Assessment Acute left sided hemiparesis Rule out acute stroke ? Other etiology Low back pain, Plan/Recommendation Monitoring Supportive treatment Telemetry MR brain scan More recommendation per clinical course This medical document was created using an electronic medical record system with [employer] dictation system. Although this document has been carefully reviewed, there may still be some phonetic and typographical errors. These areas are purely typographical due to imperfections of the software programs, and do not reflect any compromise in the patient's medical care. Plan discussed with: Patient, Other HOWARD DOTSON MD May 17, 2025 08:58
[2025-05-17] MEDS ORDERED: LORazepam 2MG/ML-1ML VIAL IV PRN (10:15)
--- NOTE | 2025-05-17 14:15 | DVH ---
Carotid Duplex Date: 05/17/2025 10:52 AM Clinical History: cva Comparison: None Technique: Duplex Doppler evaluation of the extracranial carotid and vertebral arteries including col or Doppler and spectral/pulsed waveform analysis was performed. Findings: RIGHT SIDE: The peak systolic velocities are 80 cm/s in the distal CCA and 92 cm/s in the proximal ICA.The ICA/CC A ratio is less than 2. The external carotid artery is patent with peak systolic velocity of 64 cm/s proximally. There is appropriate antegrade flow in the right vertebral artery. LEFT SIDE: The peak systolic velocities are 80 cm/s in the distal CCA and 78 cm/s in the proximal ICA.. The ICA/ CCA ratio is less than 2. The external carotid artery is patent with peak systolic velocity of 66 cm/s proximally. There is appropriate antegrade flow in the left vertebral artery. IMPRESSION: 1. No hemodynamically significant stenosis noted in the right carotid system. 2. No hemodynamically significant stenosis noted in the left carotid system. 3. Reference: Radiology 2003; 229:[id number]
--- NOTE | 2025-05-17 15:16 | DVH ---
CLINICAL INDICATION: CVA COMPARISON: CT dated 05/17/2025. TECHNIQUE: Multisequence multiplanar MRI images of the brain were obtained without contrast. FINDINGS: No acute infarct or hemorrhage. No mass or midline shift. Ventricles and sulci are within normal limits. Basal cisterns are patent. Partially empty sella. Cerebellum, brainstem, and midline s tructures are within normal limits. Minimal mucosal thickening of the paranasal sinuses. Orbits are g rossly unremarkable. IMPRESSION: 1. No evidence of acute intracranial abnormality. 2. Nonacute findings as described above.
[2025-05-17] MEDS: ACETAMINOPHEN 325 MG TAB PO PRN (16:41)
[2025-05-17 18:30] VITALS: BP 142/83; PULSE 74; RESP 18; TEMP 97.5; O2SAT 97
[2025-05-17 19:43] VITALS: BP 142/83; PULSE 74; RESP 18; TEMP 97.5; O2SAT 97
[2025-05-17 20:00] VITALS: PULSE 75
[2025-05-17] MEDS: ATORVASTATIN 20 MG TAB PO SCH (20:56)
[2025-05-17 21:00] VITALS: BP 120/68; PULSE 62; RESP 18; TEMP 97.6; O2SAT 99
[2025-05-18 01:00] VITALS: BP 121/78; PULSE 85; RESP 18; TEMP 97.5; O2SAT 97
[2025-05-18 05:00] VITALS: BP 116/72; PULSE 68; RESP 18; TEMP 97.4; O2SAT 100
[2025-05-18 07:45] LABS: Basophils # (auto) 0 10 ^3/uL (0-0.2); Basophils % (auto) 0.5 % (0.0-2.0); Eosinophils # (auto) 0.2 10 ^3/uL (0-0.8); Eosinophils % (auto) 2.4 % (0.0-7.0); Hematocrit 42.1 % (36.0-46.0); Lymphocytes # (auto) 2.2 10 ^3/uL (0.4-5.4); Mean Corpuscular Hemoglobin 25.9 pg (28.0-32.0); Mean Corpuscular Hgb Conc. 33.2 g/dL (32.0-36.0); Monocytes # (auto) 0.6 10 ^3/uL (0-1.3); Monocytes % (auto) 7.4 % (0.0-12.0); Neutrophils # (auto) 4.6 10 ^3/uL (1.6-8.6); Neutrophils % (auto) 60.7 % (37.0-80.0); Nucleated Red Blood Cells % 0.1 %; Platelet Count (auto) 290 10^3/uL (140-450); White Blood Cell 7.5 10^3/uL (4.4-10.8)
[2025-05-18 08:00] VITALS: PULSE 64; RESP 18; O2SAT 97
[2025-05-18 08:22] LABS: Alanine Aminotransferase 15 U/L (7-40); Albumin 4.6 g/dL (3.2-4.8); Alkaline Phosphatase 72 U/L (46-116); Aspartate Aminotransferase 16 U/L (<34); Blood Urea Nitrogen 10 mg/dL (9-23); Calcium 9.7 mg/dL (8.7-10.4); Chloride 107 mmol/L (98-107); Glucose 97 mg/dL (74-106); Total Protein 7.4 g/dL (5.7-8.2)
[2025-05-18 08:23] LABS: Bilirubin, Total 0.6 mg/dL (0.2-1.0)
[2025-05-18 08:50] LABS: Potassium 4.2 mmol/L (3.5-5.1); Sodium 140 mmol/L (136-145)
[2025-05-18 08:51] LABS: Anion Gap 9 (5-15); Carbon Dioxide 24 mmol/L (20-31)
[2025-05-18 09:00] VITALS: BP 132/72; PULSE 66; RESP 15; TEMP 97.1; O2SAT 96
[2025-05-18] MEDS: HYDROcodone-ACET 5/325MG TAB PO PRN (12:03)
[2025-05-18 13:00] VITALS: BP 128/90; PULSE 91; RESP 16; TEMP 97.6; O2SAT 97
--- NOTE | 2025-05-18 14:50 | DVHDS2 ---
Discharge Summary Date of Admission May 17, 2025 at 08:06 Date of Discharge: May 18, 2025 Admitting Diagnosis Back pain Labs/Diagnostic Data: Laboratory Results Test 05/18/25 07:04 05/17/25 07:45 05/17/25 06:38 White Blood Count 7.5 10^3/uL (4.4-10.8) Red Blood Count 5.40 10^6/uL (4.0-5.20) Hemoglobin 14.0 g/dL (12.2-16.2) Hematocrit 42.1 % (36.0-46.0) Mean Corpuscular Volume 78.0 fL (80.0-100.0) Mean Corpuscular Hemoglobin 25.9 pg (28.0-32.0) Mean Corpuscular Hemoglobin Concent 33.2 g/dL (32.0-36.0) Red Cell Distribution Width 15.0 % (11.8-14.3) Platelet Count 290 10^3/uL (140-450) Mean Platelet Volume 8.0 fL (6.9-10.8) Neutrophils (%) (Auto) 60.7 % (37.0-80.0) Lymphocytes (%) (Auto) 29.0 % (10.0-50.0) Monocytes (%) (Auto) 7.4 % (0.0-12.0) Eosinophils (%) (Auto) 2.4 % (0.0-7.0) Basophils (%) (Auto) 0.5 % (0.0-2.0) Neutrophils # (Auto) 4.6 10 ^3/uL (1.6-8.6) Lymphocytes # (Auto) 2.2 10 ^3/uL (0.4-5.4) Monocytes # (Auto) 0.6 10 ^3/uL (0-1.3) Eosinophils # (Auto) 0.2 10 ^3/uL (0-0.8) Basophils # (Auto) 0 10 ^3/uL (0-0.2) Nucleated Red Blood Cells 0.1 % Sodium Level 140 mmol/L (136-145) Potassium Level 4.2 mmol/L (3.5-5.1) Chloride Level 107 mmol/L (98-107) Carbon Dioxide Level 24 mmol/L (20-31) Anion Gap 9 (5-15) Blood Urea Nitrogen 10 mg/dL (9-23) Creatinine 0.83 mg/dL (0.550-1.02) Glomerular Filtration Rate Calc 85 mL/min (>90) BUN/Creatinine Ratio 12.0 (10.0-20.0) Serum Glucose 97 mg/dL (74-106) Calcium Level 9.7 mg/dL (8.7-10.4) Total Bilirubin 0.6 mg/dL (0.2-1.0) Aspartate Amino Transferase (AST) 16 U/L (<34) Alanine Aminotransferase (ALT) 15 U/L (7-40) Alkaline Phosphatase 72 U/L (46-116) Total Protein 7.4 g/dL (5.7-8.2) Albumin 4.6 g/dL (3.2-4.8) Urine Color Light-yellow (Yellow) Urine Clarity Clear (Clear) Urine pH 7.0 (5.0-9.0) Urine Specific [place] 1.017 (1.001-1.035) Urine Protein Negative (Negative) Urine Ketones Negative (Negative) Urine Blood Negative /uL (Negative) Urine Nitrite Negative (Negative) Urine Bilirubin Negative (Negative) Urine Urobilinogen Normal mg/dL (Negative) Urine Leukocyte Esterase Negative /uL (Negative) Urine RBC 5 /hpf (0 - 4) Urine Microscopic WBC 1 /HPF (0-5) Urine Squamous Epithelial Cells Few /hpf (<5) Urine Bacteria None seen /hpf (None Seen) Urine Glucose Normal mg/dL (Normal) Troponin I High Sensitivity < 3 ng/L (</=34) Other Laboratory Tests 05/18/25 07:04 Brief Hx & Hospital Course: History of Present Illness Abril Warren is a 50-year-old female with past medial history of hyperlipidemia, who came to the hospital due to left sided back pain. She states the pain began yesterday while at work. She took some Tylenol and it seemed better. Later she began experiencing left sided numbness and tingling. She states it was her entire left side of her body, face, arm, and leg, prompting her to come to the hospital. At the time of assessment she states the numbness and tingling has improved, but she is still experiencing pain, and left sided weakness. Course of hospitalization: Patient had MRI of the brain which was negative for any acute pathology. All of her symptoms have resolved. Carotid Doppler study was also performed which was negative for any flow-limiting stenosis. Patient recently had echocardiogram several months ago which was essentially normal. Patient will be discharged home as instructed to follow up with her PCP in 1-2 weeks. New medication will be prescribed at this time. Physical examination General: Alert and Oriented x3. No acute distress. Well-nourished. Eyes: EOMI. Anicteric. HENT: Moist mucous membranes. Lungs: Clear to auscultation bilaterally. No accessory muscle use. Cardiovascular: Regular rate and rhythm. No murmur. No JVD. Abdomen: Soft, non-tender and non-distended. No palpable masses. Extremities: No edema. Non-tender. Skin: No rashes or lesions. Warm. Neurologic: No focal neurological deficits. CN II-XII grossly intact, but not individually tested. Psychiatric: Cooperative. Appropriate mood and affect. Total time spent with patient discussing and formulating plan of care: 35 minutes. This medical document was created using an electronic medical record system with [employer] dictation system. Although this document has been carefully reviewed, there may still be some phonetic and typographical errors. These areas are purely typographical due to imperfections of the software programs, and do not reflect any compromise in the patient's medical care. Consults/Reason for consult Neurology: Rule out CVA Condition at Discharge: Fair Final Diagnosis/Problems List TIA Secondary diagnosis: Dyslipidemia Obesity Discharge Disposition: Home Discharge Instruct/Medications Diet: Regular Activity: No Restrictions, As Tolerated Follow Up/Referral: PCP in 1 week Medications: Continue all home medications 36 Discharge Statement: "Patient was advised to return to the ER or call 911 if any headaches, dizziness, shortness of breath, chest pain, abdominal pain, bleeding, fevers, or worsening of medical condition. Patient was counseled about treatment plan, medications, possible side effects, patientverbalized understanding. All questions were answered to the best of my ability. This discharge took greater then 30 minutes in planning, reviewing documentation, counseling the patient, and discussing with other team members." ASSESSMENT ASSESSMENT Assessment TIA Date of Service: May 18, 2025 Billing Provider: CHUY VOGEL NP Common Visit Codes: [id number]/OBS DISCH DAY >30min CHUY VOGEL NP May 18, 2025 14:50
== END 2025-05-18 16:20 | disposition home or self-care (01) | DRG 69 ==
LOC: EDBD 01:39 → ER 01:39 → OVERFLOW 08:06 → TELE-WESTW 18:30
PROVIDERS: ADMIT Nurse Practitioner Acute Care; ATTEND Nurse Practitioner Acute Care
DX: G45.9 Transient cerebral ischemic attack, unspecified (principal); G81.94 Hemiplegia, unspecified affecting left nondominant side; M54.42 Lumbago with sciatica, left side; H91.91 Unspecified hearing loss, right ear; E78.5 Hyperlipidemia, unspecified; E66.9 Obesity, unspecified; K21.9 Gastro-esophageal reflux disease without esophagitis; Z68.33 Body mass index [BMI] 33.0-33.9, adult; Z88.0 Allergy status to penicillin; Z90.710 Acquired absence of both cervix and uterus; Z80.41 Family history of malignant neoplasm of ovary; Z80.0 Family history of malignant neoplasm of digestive organs
CPT/HCPCS: 36415; 70450; 70551; 71045; 72100; 80048; 80053; 81001; 84484; 85025; 93886; 96360; 99291; G0378

== ENCOUNTER 2025-10-06 09:51 | Emergency (ER) | payer BC ==
[~2025-10-06] VITALS: Ht 152.4 cm; Wt 77.2 kg
--- NOTE | 2025-10-06 10:21 | ED.PDOC ---
GI ASSESSMENT HPI Comments Ms. Bearden is a 50 year old female with prior medical history of an unrepaired umbilical hernia, who presents today with chief complaint of abdominal pain. Refers that last night she had progressive onset of periumbilical pain described as sharp, radiating towards right lower quadrant, constant with intermittent periods of exacerbation, 10/10 intensity, associated with nausea, without aggravating or relieving factors. She denies fever, vomiting, diarrhea, bowel movements, passing gas, chest pain, shortness of breath, palpitations, and diaphoresis. Due to persistence of pain, the patient presented to the ED for evaluation. On initial evaluation, the patient seems well, vitals were stable, she is able to ambulate without difficulty, without overt signs of distress. Chief Complaint: Abdominal Pain Time Seen by MD: 09:55 Primary Care Provider: ANH Allergies: Coded Allergies: Penicillins (Verified Allergy, Unknown, 01/12/25) Home Meds Active Scripts Pantoprazole Sodium Sesquihydr (Protonix) 40 Mg Tab, 40 MG PO DAILY for 5 Days, #5 TAB Prov:GIOVANNI GIBBONS MD 11/13/24 Reported Medications Atorvastatin Calcium (ATORVASTATIN CALCIUM) 10 Mg Tab, 1 TAB PO DAILY, #30 TAB 5 Refills 01/13/25 Information Source: Patient Mode of Arrival: Ambulatory Timing: Hours Duration: Since onset Quality: Sharp Vomitus: None Stool: Other (No bowel movements since onset of pain) Severity: Mild Recent: None Recent Hx of: None Pain Location: RLQ, Periumbilical Modifying Factors: Nothing Associated sign and symptoms: Nausea Past Medical History PAST MEDICAL HISTORY: GERD, High Lipids Past Medical History (Other): Umbilical hernia Surgical History: Cholecystectomy, Hysterectomy [employer] History: No Pertinent [employer] History Family History Family History: Reviewed,noncontributory to illness, Family hx of Cancer Social History Smoker: Non-Smoker Alcohol: Denies ETOH Use Drugs: Denies Drug Use Lives In: Home Constitutional: denies: chills, diaphoresis, fatigue, fever, malaise, sweats, weakness EENTM: denies: blurred vision, double vision, eye redness, hearing loss, nasal discharge, nose congestion, nose pain, photophobia, throat pain, voice changes Respiratory: denies: cough, hemoptysis, orthopnea, shortness of breath Cardiovascular: denies: chest pain, dizzy spells, diaphoresis, Dyspnea on exertion, edema, irregular heart beat, left arm pain, lightheadedness, palpitations, syncope Gastrointestinal: reports: abdominal pain, nausea; denies: abdomen distended, blood streaked bowels, constipated, diarrhea, dysphagia, difficulty swallowing, hematemesis, melena, poor appetite, poor fluid intake, rectal bleeding, vomiting Genitourinary: denies: abnormal vagina bleeding, burning, dyspareunia, dysuria, flank pain, frequency, hematuria, incontinence, pain, , vagina discharge, urgency, others Neurological: denies: dizziness, fainting, headache, numbness, paresthesia, pre-existing deficit, seizure, speech problems, tingling, tremors, weakness Musculoskeletal: denies: back pain, joint pain, joint swelling, muscle pain, muscle stiffness, neck pain Integumetry: denies: bruises, laceration, lesions, lumps, rash, wounds, others Physical Exam General Appearance: Mild Distress HEENT: Normal ENT Inspection, PERRL/EOMI, Pharynx Normal Neck: Full Range of Motion, Non-Tender, Normal Inspection Respiratory: Other (Bilateral chest expansion, mild tenderness on anterior chest wall palpation, clear lungs bilaterally, vesicular murmurs present in almost all lung lopez, no crackles present) Cardiovascular: No Edema, No Murmur, Normal Peripheral Pulses, Regular Rate/Rhythm Breast Exam: Deferred Gastrointestinal: Other (Abdomen nondistended, normoactive bowel sounds, soft, pain on palpation of periumbilical region and RLQ, McBurney positive, Les negative, Rovsing negative, no guarding or rebound tenderness) Genitalia: Deferred Pelvic: Deferred Rectal: Deferred Extremities: Normal capillary refill, Normal inspection, Normal range of motion, Non-tender, No pedal edema Neurologic: Alert, Normal Affect, Normal Mood Cerebellar Function: Normal Reflexes: NOT DONE Skin: Normal Color Peripheral Pulses: 4+ dorsalis pedis (R), 4+ dorsalis pedis (L) Lymphatic: Other (No cervical adenopathy) Was a procedure done? Was a procedure done?: No GI differential Dx Differential Diagnosis: Appendicitis, Angina/UT, Bowel Obstruction, Cholangitis, Cholecystitis, Constipation, Diverticular disease, Gastritis/PUD, Gastroenteritis, Hernia, Ischemic Bowel, Pancreatitis, Urinary Obstruction, UTI, Urolithiasis X-Ray, Labs, Meds, VS Vital Signs Date Time Temp Pulse Resp B/P (MAP) Pulse Ox O2 Delivery O2 Flow Rate FiO2 10/06/25 17:36 97.4 80 20 144/97 (113) 100 97.4 10/06/25 15:30 97.6 76 16 146/87 (106) 98 97.6 10/06/25 12:20 81 15 99 Room Air 10/06/25 12:20 98.9 81 15 153/88 (109) 99 98.9 10/06/25 09:52 98.5 84 18 146/89 100 98.5 Lab Test 10/06/25 17:31 10/06/25 11:49 10/06/25 11:00 10/06/25 10:39 Range/Units Lactic Acid Level 0.9 0.4-2.0 mmol/L Troponin I High Sensitivity < 3 L < 3 L </=34 ng/L Urine Color Light-yellow Yellow Urine Clarity Clear Clear Urine pH 7.0 5.0-9.0 Urine Specific [place] 1.014 1.001-1.035 Urine Protein Negative Negative Urine Ketones Negative Negative Urine Blood 1+ H Negative /uL Urine Nitrite Negative Negative Urine Bilirubin Negative Negative Urine Urobilinogen Normal Negative mg/dL Urine Leukocyte Esterase Negative Negative /uL Urine RBC 6 0 - 4 /hpf Urine Microscopic WBC 1 0-5 /HPF Urine Squamous Epithelial Cells Few <5 /hpf Urine Bacteria None seen None Seen /hpf Urine Glucose Normal Normal mg/dL White Blood Count 6.4 4.4-10.8 10^3/uL Red Blood Count 5.66 H 4.0-5.20 10^6/uL Hemoglobin 14.2 12.2-16.2 g/dL Hematocrit 43.6 36.0-46.0 % Mean Corpuscular Volume 77.1 L 80.0-100.0 fL Mean Corpuscular Hemoglobin 25.1 L 28.0-32.0 pg Mean Corpuscular Hemoglobin Concent 32.5 32.0-36.0 g/dL Red Cell Distribution Width 14.9 H 11.8-14.3 % Platelet Count 328 140-450 10^3/uL Mean Platelet Volume 8.0 6.9-10.8 fL Neutrophils (%) (Auto) 56.1 37.0-80.0 % Lymphocytes (%) (Auto) 34.3 10.0-50.0 % Monocytes (%) (Auto) 6.5 0.0-12.0 % Eosinophils (%) (Auto) 2.1 0.0-7.0 % Basophils (%) (Auto) 1.0 0.0-2.0 % Neutrophils # (Auto) 3.6 1.6-8.6 10 ^3/uL Lymphocytes # (Auto) 2.2 0.4-5.4 10 ^3/uL Monocytes # (Auto) 0.4 0-1.3 10 ^3/uL Eosinophils # (Auto) 0.1 0-0.8 10 ^3/uL Basophils # (Auto) 0.1 0-0.2 10 ^3/uL Nucleated Red Blood Cells 0.1 % Sodium Level 143 136-145 mmol/L Potassium Level 3.8 3.5-5.1 mmol/L Chloride Level 105 98-107 mmol/L Carbon Dioxide Level 28 20-31 mmol/L Anion Gap 10 5-15 Blood Urea Nitrogen 7 L 9-23 mg/dL Creatinine 0.68 0.550-1.02 mg/dL Glomerular Filtration Rate Calc 105 >90 mL/min BUN/Creatinine Ratio 10.3 10.0-20.0 Serum Glucose 87 74-106 mg/dL Calcium Level 9.3 8.7-10.4 mg/dL Total Bilirubin 0.6 0.2-1.0 mg/dL Aspartate Amino Transferase (AST) 19 13-40 U/L Alanine Aminotransferase (ALT) 20 7-40 U/L Alkaline Phosphatase 89 46-116 U/L Total Protein 7.7 5.7-8.2 g/dL Albumin 4.8 3.2-4.8 g/dL Lipase 38 12-53 U/L Current Medications Medications (Trade) Dose Ordered Sig/Anayeli Route Start Time Stop Time Status Last Admin Sodium Chloride 1,000 ml @ 1,000 mls/hr Q1H ONCE IV 10/06/25 10:30 10/06/25 11:29 DC 10/06/25 12:19 Ondansetron HCl (Zofran) 4 mg ONCE ONCE IV 10/06/25 10:30 10/06/25 11:03 DC 10/06/25 12:55 Ketorolac Tromethamine (Toradol Injection) 15 mg ONCE ONCE IV 10/06/25 17:30 10/06/25 17:33 DC 10/06/25 17:45 Time of 1ST Reevaluation: 12:00 Reevaluation 1ST: Unchanged Time of 2ND Reevaluation: 17:00 Reevaluation 2ND: Improved Patient Education/Counseling: Diagnosis, Treatment Family Education/Counseling: No Family Present Comments Patient presents today with chief complaint of abdominal pain On initial evaluation the patient seems well, vitals were stable, is ambulating without difficulty, without overt signs of distress Physical examination is positive for pain on palpation in periumbilical region and right lower quadrant, McBurney positive, Les and Rovsing negative, no rebound tenderness or guarding present CBC, CMP, and lipase are within normal range, troponins are negative, UA is without significant finding Abdominal CT with contrast shows no evidence for acute appendicitis, Cholecystectomy, Moderate volume stool within the colon, 4 mm nonobstructing right renal calculus. The patient was offered acetaminophen 325 p.o., however she refused this medication. She was given Toradol 15 mg IV, she states helped alleviate her pain. Patient was given NS 1000 cc bolus and 4 mg Zofran IV On re-evaluation the patient states Toradol alleviate her pain, vitals continued to be stable We considered that the patient is stable for discharge home All findings, implications, and plan of care have been discussed with the patient SEPSIS Sepsis Screen Date sepsis recognized/suspect: Oct 06, 2025 Time Sepsis recognized/suspect: 953 Recent Procedure: No On Antibiotic Therapy: No Respiratory Rate >20: No Heart Rate >90: No Temp<36 C (96.8 F) or >38.3 C: No SBP <90 or MAP <65 mmHG: No New Acute Mental Status Change: No Is the patient on CPAP, BIPAP,: No Physician Orders Ct Ab Pel With Iv Con Only (10/06/25 10:16) Electrocardigram (10/06/25 10:16) Vital Signs Date Time Temp Pulse Resp B/P (MAP) Pulse Ox O2 Delivery O2 Flow Rate FiO2 10/06/25 17:36 97.4 80 20 144/97 (113) 100 97.4 10/06/25 15:30 97.6 76 16 146/87 (106) 98 97.6 10/06/25 12:20 81 15 99 Room Air 10/06/25 12:20 98.9 81 15 153/88 (109) 99 98.9 10/06/25 09:52 98.5 84 18 146/89 100 98.5 Laboratory Tests Test 10/06/25 10:39 10/06/25 17:31 White Blood Count 6.4 10^3/uL (4.4-10.8) Lactic Acid Level 0.9 mmol/L (0.4-2.0) Medications Medications Dose Ordered Sig/Anayeli Route Start Time Stop Time Status Last Admin Dose Admin Ketorolac Tromethamine 15 mg ONCE ONCE IV 10/06/25 17:30 10/06/25 17:33 DC 10/06/25 17:45 Ondansetron HCl 4 mg ONCE ONCE IV 10/06/25 10:30 10/06/25 11:03 DC 10/06/25 12:55 Sodium Chloride 1,000 ml @ 1,000 mls/hr Q1H ONCE IV 10/06/25 10:30 10/06/25 11:29 DC 10/06/25 12:19 Departure 1 Departure Time of Disposition: 18:34 Impression: Primary Impression: Intractable abdominal pain Disposition: 01 HOME / SELF CARE / HOMELESS Condition: Stable Written Prescriptions You presented today due to abdominal pain Your workup which includes a CBC, CMP, troponins, urinalysis, and abdominal CT are benign You were given Zofran for nausea, IV fluids, and Toradol 15 mg IV for pain On review of the data, it is unlikely that you are currently presenting with pancreatitis, appendicitis, cholecystitis, cholangitis, bowel obstruction, or incarcerated/strangulated hernia. You are considered stable for discharge home We recommend that you follow up with your PCP within 1-3 days If your symptoms persist/worsen or should you have any further questions or concerns, please present to the emergency department for evaluation. Indication: R/o appendicitis Technique: CT axial images of the abdomen and pelvis are obtained with intravenous contrast. Coronal and sagittal reformats were obtained. Radiation Dose Information: CTDI volume is 16.2 mGy. Dose-length product is 804.99 mGy*cm Comparison: CT ABD/PEL on DOS: 02/06/20, CT ABD/PEL W - IV on DOS: 08/13/19 FINDINGS: Lung bases demonstrate no pleural effusion. Adrenal glands, spleen, pancreas unremarkable. Cholecystectomy. No enhancing hepatic lesion. 4 mm nonobstructing right renal calculus. No hydronephrosis bilaterally. 1 cm right renal cyst. Stomach is partially distended. Small bowel loops are normal in caliber. Moderate volume stool in the colon. Normal appendix. Abdominal aorta normal in caliber. Bladder contracted. No free pelvic fluid. No inguinal lymphadenopathy. No aggressive osseous process. [id number] thoracolumbar degenerative disc disease. IMPRESSION: No evidence for acute appendicitis. Cholecystectomy. Moderate volume stool within the colon. 4 mm nonobstructing right renal calculus. Other findings as described. Critical Care Note Critical Care Time?: No Stability Stability form required: GUERRERO Villar RESIDENT Oct 06, 2025 10:21 ELISHA LANTIGUA MD Oct 06, 2025 13:41
[2025-10-06 11:17] LABS: Hematocrit 43.6 % (36.0-46.0); Hemoglobin 14.2 g/dL (12.2-16.2); Mean Corpuscular Hemoglobin 25.1 pg (28.0-32.0); Mean Corpuscular Volume 77.1 fL (80.0-100.0); Nucleated Red Blood Cells % 0.1 %
[2025-10-06 11:29] LABS: Alanine Aminotransferase 20 U/L (7-40); Albumin 4.8 g/dL (3.2-4.8); Alkaline Phosphatase 89 U/L (46-116); Anion Gap 10 (5-15); BUN/Creatinine Ratio 10.3 (10.0-20.0); Calcium 9.3 mg/dL (8.7-10.4); Carbon Dioxide 28 mmol/L (20-31); Chloride 105 mmol/L (98-107); Glucose 87 mg/dL (74-106); Lipase 38 U/L (12-53); Potassium 3.8 mmol/L (3.5-5.1); Sodium 143 mmol/L (136-145); Total Protein 7.7 g/dL (5.7-8.2)
[2025-10-06 11:30] LABS: Bilirubin, Total 0.6 mg/dL (0.2-1.0)
[2025-10-06 11:34] LABS: Blood Urea Nitrogen 7 mg/dL (9-23)
[2025-10-06] MEDS: SODIUM CHLORIDE 0.9% 1,000 ML IV ONE (12:19)
[2025-10-06] MEDS: IOHEXOL 300 MG/ML 100ML BOTTLE IJ ONE (12:21)
--- NOTE | 2025-10-06 12:43 | DVH ---
Indication: R/o appendicitis Technique: CT axial images of the abdomen and pelvis are obtained with intravenous contrast. Coronal and sagittal reformats were obtained. Radiation Dose Information: CTDI volume is 16.2 mGy. Dose-length product is 804.99 mGy*cm Comparison: CT ABD/PEL on DOS: 02/06/20, CT ABD/PEL W - IV on DOS: 08/13/19 FINDINGS: Lung bases demonstrate no pleural effusion. Adrenal glands, spleen, pancreas unremarkable. Cholecystectomy. No enhancing hepatic lesion. 4 mm nonobstructing right renal calculus. No hydronephrosis bilaterally. 1 cm right renal cyst. Stomach is partially distended. Small bowel loops are normal in caliber. Moderate volume stool in the colon. Normal appendix. Abdominal aorta normal in caliber. Bladder contracted. No free pelvic fluid. No inguinal lymphadenopathy. No aggressive osseous process. [id number] thoracolumbar degenerative disc disease. IMPRESSION: No evidence for acute appendicitis. Cholecystectomy. Moderate volume stool within the colon. 4 mm nonobstructing right renal calculus. Other findings as described.
[2025-10-06 12:51] LABS: Urine Protein, UAD Negative (Negative)
[2025-10-06] MEDS: ONDANSETRON HCL 4 MG/2 ML VIAL IV ONE (12:55)
[2025-10-06] MEDS: ACETAMINOPHEN 325 MG TAB PO ONE (13:03)
[2025-10-06 17:36] VITALS: BP 144/97; PULSE 80; RESP 20; TEMP 97.4; O2SAT 100
[2025-10-06] MEDS: KETOROLAC TROMETH 30 MG/ML 1ML VIAL IV ONE (17:45)
== END 2025-10-06 18:52 | disposition home or self-care (01) ==
LOC: ER 09:51
DX: R10.33 Periumbilical pain (principal); Z90.710 Acquired absence of both cervix and uterus; Z90.49 Acquired absence of other specified parts of digestive tract; Z79.899 Other long term (current) drug therapy
CPT/HCPCS: 36415; 74177; 80053; 81001; 83605; 83690; 84484; 85025; 96361; 96374; 96375; 99285; J1885; J2405; J7030; Q9967